=== PATIENT | female | born 1940 | race Caucasian/White ===

== ENCOUNTER → 2023-11-29 15:09 | Outpatient (REF) | payer OTHER, SELFPAY | LOC: WDC 15:09 | PROVIDERS: ATTENDING PHYSICIAN Surgery; FAMILY PHYSICIAN Physician Assistant Medical | DX: Z12.31 Encounter for screening mammogram for malignant neoplasm of breast (principal) | CPT/HCPCS: 77063; 77067 ==

== ENCOUNTER → 2024-06-06 11:31 | Outpatient (REF) | payer OTHER, SELFPAY | LOC: RAD 11:31 | PROVIDERS: ATTENDING PHYSICIAN Physician Assistant Medical | DX: M41.9 Scoliosis, unspecified (principal); M25.551 Pain in right hip; M25.552 Pain in left hip; G89.29 Other chronic pain; M54.42 Lumbago with sciatica, left side | CPT/HCPCS: 72110; 73523 ==

== ENCOUNTER 2024-06-30 12:53 | Outpatient (RCR) | payer OTHER, SELFPAY | END 2024-06-30 23:59 | disposition home or self-care (01) | LOC: RPT 12:53 | PROVIDERS: ATTENDING PHYSICIAN Physician Assistant Medical | DX: M41.9 Scoliosis, unspecified (principal); M25.551 Pain in right hip; M25.552 Pain in left hip; R26.89 Other abnormalities of gait and mobility; Z73.6 Limitation of activities due to disability | CPT/HCPCS: 97010; 97110; 97162 ==

== ENCOUNTER 2024-07-25 13:53 | Outpatient (RCR) | payer OTHER, SELFPAY | END 2024-07-28 07:40 | disposition home or self-care (01) | LOC: RPT 13:53 | PROVIDERS: ATTENDING PHYSICIAN Physician Assistant Medical | DX: M41.9 Scoliosis, unspecified (principal); M25.551 Pain in right hip; M25.552 Pain in left hip; R26.89 Other abnormalities of gait and mobility; Z73.6 Limitation of activities due to disability | CPT/HCPCS: 97010; 97110 ==

== ENCOUNTER → 2024-09-15 10:46 | Outpatient (REF) | payer OTHER, SELFPAY | LOC: RAD 10:46 | PROVIDERS: ATTENDING PHYSICIAN Internal Medicine; FAMILY PHYSICIAN Physician Assistant Medical | DX: M81.0 Age-related osteoporosis without current pathological fracture (principal) | CPT/HCPCS: 77080; 77081 ==

== ENCOUNTER 2024-09-25 11:40 | Emergency (ER) | payer OTHER, SELFPAY ==
[2024-09-25 11:41] VITALS: BP 161/100
--- NOTE | 2024-09-25 13:39 | ED.GENMED ---
History of Present Illness
General
Chief Complaint: Fall
Source: patient
Exam Limitations: none
Time Seen by Provider: 09/25/24 13:27
History of Present Illness
History of Present Illness:
84yoF with a history of hypothyroidism, hyperlipidemia, and restrictive airway disease presenting after a fall around 10:30am this morning. Patient was walking in the garage when she hit the front of her head on the garage door. The impact caused
her to fall backwards striking her head on the ground. She states her head bounced on the ground. She denies any LOC. Patient states her head felt weird after the incident. She has a mild headache and some neck discomfort. She denies any dizziness
or vomiting. She is not on any blood thinners.
Phy Exam
General Physical Exam
General Presentation: well appearing and no apparent distress
General age: appears stated age
General Skin: warm and dry
General Habitus: normal
General Mental: alert
ENT Exam
ENT Exam: normocephalic and other (No external signs of head trauma. No cervical spine tenderness with full ROM.)
Eye Exam
Eye Exam: PERRL
Pulmonary Exam
Pulmonary Exam: lungs clear, no respiratory distress, no rales and no rhonchi
Neurological Exam
Neurological Exam: alert
Justin Coma Scale
Eye Opening: Spontaneous
Verbal Response: Oriented
Motor Response: Obeys Commands
GCS Total Score: 15
Musculoskeletal Exam
Musculoskeletal Exam: other (No C/T/L spine tenderness)
Skin Exam
Skin Exam: normal color and warm/dry
Psychiatric Exam
Psychiatric Exam: normal mood/affect
Course
Orders/Labs/Results
Orders:
Orders
09/25/24 11:49
CT Head W/o Iv Contrast Urgent
Comment:
Reason For Exam: head injury, headache
Vital Signs
Initial and Last Documented VS:
Initial Vital Signs
Temp Pulse Resp BP Pulse Ox
98.5 F 114 18 161/100 98
09/25/24 11:41 09/25/24 11:41 09/25/24 11:41 09/25/24 11:41 09/25/24 11:41
Last Documented Vital Signs
Temp Pulse Resp BP Pulse Ox
98.5 F 114 18 161/100 98
09/25/24 11:41 09/25/24 11:41 09/25/24 11:41 09/25/24 11:41 09/25/24 11:41
MDM/Problems Addressed
Differential Diagnosis Includes:
84yoF here after a head injury. Fell in the garage striking the back of her head. No LOC. C/o mild headache and head feeling weird. Also c/o neck pain. She is not on any blood thinners. She is awake, alert, with a GCS of 15. No external signs of
head trauma on exam. No cervical spine tenderness with full range of motion. Differential diagnosis includes but is not limited to: Closed head injury, concussion, intracranial hemorrhage, fracture
CT head obtained in triage which is negative for intracranial hemorrhage and skull fracture. I recommended CT cervical spine to exclude cervical fracture. Patient is refusing cervical spine imaging at this time stating she does not feel it is
necessary as her neck pain is only a soreness. Discussed that we cannot exclude a cervical spine injury/fracture without imaging which she understands. Patient is requesting discharge at this time without further imaging. Supportive care
discussed. Advised close PCP follow-up and ED return precautions discussed. She was discharged in stable condition.
*Critical Care Note
Total Time (30-74mins, 75-104mins- exclusive of procedures): Not Applicable
ED Attending Note
-
Portions of this chart may have been created with voice recognition software.� Occasional wrong word or��sound alike� substitutions may have occurred due to the inherent limitations of voice recognition software.
Discharge Plan
Departure
Patient Disposition: Home (Routine Discharge)
Date of Disposition: 09/25/24
Time of Disposition: 13:42
Patient with high blood pressure during this ER visit?: Yes
Discharge Problem:
Closed head injury
Instructions: Head Injury in Adults (DC)
Prescriptions:
No Action
calcium 500 MG tablet
3 PO DAILY
levothyroxine 75 MCG tablet
1 PO DAILY
magnesium 250 MG tablet
1 PO DAILY
[place] 3 [employer]
4 PO DAILY
Activity Restrictions/Additional Instructions:
Please follow-up with your family doctor. Return to the ER with any worsening symptoms or new weakness/numbness of your extremities.
Interventions
Interventions:
*Risk Screen - Suicide Last Done: 09/25/24 11:41
*General Assessment Last Done: 09/25/24 11:41
*Neglect/Abuse Screening Last Done: 09/25/24 11:41
*ED COVID-19 Vaccine History Last Done: 09/25/24 11:41
Discharge Date and Time
Print Language: MOZAMBICAN
== END 2024-09-25 14:33 | disposition home or self-care (01) ==
LOC: EMR 11:40
PROVIDERS: EMERGENCY PHYSICIAN Emergency Medicine; FAMILY PHYSICIAN Physician Assistant Medical
DX: S09.90XA Unspecified injury of head, initial encounter (principal); W22.09XA Striking against other stationary object, initial encounter; Y93.01 Activity, walking, marching and hiking; E03.9 Hypothyroidism, unspecified; E78.00 Pure hypercholesterolemia, unspecified
CPT/HCPCS: 99284; 70450

== ENCOUNTER → 2024-10-08 12:42 | Outpatient (REF) | payer OTHER, SELFPAY | LOC: RAD 12:42 | PROVIDERS: ATTENDING PHYSICIAN Internal Medicine; FAMILY PHYSICIAN Physician Assistant Medical | DX: M25.50 Pain in unspecified joint (principal); M25.60 Stiffness of unspecified joint, not elsewhere classified | CPT/HCPCS: 73130 ==

== ENCOUNTER → 2024-10-14 11:24 | Outpatient (REF) | payer OTHER, SELFPAY | LOC: RAD 11:24 | PROVIDERS: ATTENDING PHYSICIAN Physician Assistant Medical | DX: M54.2 Cervicalgia (principal); M54.6 Pain in thoracic spine | CPT/HCPCS: 72052; 72072 ==

== ENCOUNTER → 2024-12-02 13:08 | Outpatient (REF) | payer OTHER, SELFPAY | LOC: WDC 13:08 | PROVIDERS: ATTENDING PHYSICIAN Surgery; FAMILY PHYSICIAN Physician Assistant Medical | DX: Z12.31 Encounter for screening mammogram for malignant neoplasm of breast (principal) | CPT/HCPCS: 77063; 77067 ==

== ENCOUNTER → 2025-02-05 13:48 | Outpatient (REF) | payer OTHER, SELFPAY | LOC: WDC 13:48 | PROVIDERS: ATTENDING PHYSICIAN Surgery; FAMILY PHYSICIAN Physician Assistant Medical | DX: Z91.89 Other specified personal risk factors, not elsewhere classified (principal); R92.2 Inconclusive mammogram | CPT/HCPCS: 76641 ==

== ENCOUNTER → 2025-02-06 06:50 | Outpatient (REF) | payer OTHER, SELFPAY | LOC: RCS 06:50 | PROVIDERS: ATTENDING PHYSICIAN Internal Medicine Cardiovascular Disease; FAMILY PHYSICIAN Physician Assistant Medical | DX: I10 Essential (primary) hypertension (principal); R06.02 Shortness of breath; E78.00 Pure hypercholesterolemia, unspecified | CPT/HCPCS: 78452; 93017; A9500 ==

== ENCOUNTER → 2025-02-11 12:41 | Outpatient (REF) | payer OTHER, SELFPAY | LOC: RCS 12:41 | PROVIDERS: ATTENDING PHYSICIAN Internal Medicine Cardiovascular Disease; FAMILY PHYSICIAN Physician Assistant Medical; REFERRING PHYSICIAN Nurse Practitioner Adult Health | DX: Z01.810 Encounter for preprocedural cardiovascular examination (principal); I10 Essential (primary) hypertension; R06.02 Shortness of breath; E78.00 Pure hypercholesterolemia, unspecified | CPT/HCPCS: 71046; 93306 ==

== ENCOUNTER 2025-03-02 06:42 | Inpatient (IN) | payer OTHER, SELFPAY ==
[2025-02-17 10:13] VITALS: BMI 20.5
[2025-02-17 11:26] LABS: Hematocrit 41.2 % (37.0-47.0); Hemoglobin 13.4 g/dL (12.0-16.0); Mean Corp Hgb Conc. 32.5 g/dL (33.0-37.0); Mean Corpuscular Volume 82.6 fL (81.0-99.0); Platelet Count 373 10^3/uL (130-400); Red Cell Dist. Width 13.2 % (11.5-14.5)
[2025-02-17 11:49] LABS: ALT (SGPT) 16 U/L (0-35); AST (SGOT) 21 U/L (14-36); Albumin 4.7 g/dl (3.5-5.0); Alkaline Phosphatase 61 U/L (38-126); Blood Urea Nitrogen 17 mg/dl (7-17); Calcium 9.4 mg/dl (8.4-10.2); Carbon Dioxide 28 mmol/L (22-30); Chloride 100 mmol/L (98-107); Estimated Creatinine Clearance 52 ml/min; Glucose 86 mg/dl (70-99); Potassium 4.6 mmol/L (3.5-5.1); Sodium 137 mmol/L (135-145); Total Protein 7.1 g/dl (6.3-8.2); eGFR > 60.00
[2025-02-17 12:12] LABS: Glycohemoglobin (HgbA1c) 5.7 % (4.0-5.6)
[2025-02-26 08:09] VITALS: BMI 20.5
[2025-03-02] VITALS (12 sets, daily range): BP systolic 91–135; BP diastolic 53–76; PULSE 96–110; O2SAT 97–98; BMI 20.5
[2025-03-02] MEDS: CELEBREX 200 MG PO (07:12)
[2025-03-02] MEDS: TYLENOL 650 MG PO ×4 (07:13→23:12)
[2025-03-02] MEDS: NORMOSOL-R/PLASMALYTE-A 1000 IV ×2 (07:19→13:50)
[2025-03-02] MEDS: DILAUDID 0.25 MG IV ×2 (10:59→11:11)
[2025-03-02] MEDS: ROXICODONE 5 MG PO ×2 (11:26→20:24)
[2025-03-02] MEDS: PROTONIX IV 40 MG IV (12:30)
[2025-03-02] MEDS: NSS (PRESERVATIVE FREE) 10 ML IV (12:32)
[2025-03-02] MEDS: MAALOX 30 ML PO (12:32)
--- NOTE | 2025-03-02 12:34 | W.PN.ORTHO ---
Today's Communication / Plan
-
Monitor troponin trends.
Monitor L hip pain.
D/c when clinically stable.
Assessment
.
Distal Motor Intact: Yes
Dressing:
Scant areas of incisional bleeding.
Assessment:
L hip OA s/p Angela MARIE w/ Dr Patel 03/02/25
DVT prophylaxis - ASA, b/l venous foot pumps
L hip pain - will order additional 2.5 mg Oxycodone dose, Gabapentin, and Lidocaine patches
- Monitor and adjust meds as indicated
Reported chest discomfort post-op - likely indigestion related w/ underlying GERD - will order IV Protonix, Maalox
- Rule out cardiac cause: EKG NSR, minimal voltage criteria for LVH (may be normal variant) - no change since prior EKG 2017. Serial troponin ordered
- Monitor
HTN - + parameters - monitor BP
COPD with asthmatic component
Restrictive lung disease
Chronic dyspnea on exertion
- Monitor O2
- IS
- Resume home inhalers
- IV Decadron w/ transition to oral upon d/c
GERD and Hiatal hernia - continue PPI therapy
Remote rectal bleed secondary to colon polyps - minimize NSAIDs
Irritable bowel syndrome with constipation - start w/ Colace and Senna initially per pt preference
- Add MOM HS should no BM occur within 48-72 hours post-op
- Adequate hydration, early mobility as tolerated, and the minimization of opioids discussed fidelina-op
Concussion, 10/2024, secondary to mechanical fall, improved - on fall precautions
Hypercholesterolemia
Diverticulosis
Essential tremor
Multilevel degenerative disc disease
Scoliosis, status post remote thoracic fusion
Multinodular goiter, status post right partial thyroidectomy
Post-surgical hypothyroidism
Depression
Anxiety
Insomnia
Osteoporosis
Childhood polio
Remote history of tobacco abuse
Plan
.
Surgery / Date: Angela MARIE w/ Dr Patel 03/02/25
DVT Prophylaxis: Aspirin
Activity:
Out of bed.
PT/OT
Discharge Plan: Home w/ Outpatient PT
Subjective
.
.:
Patient examined resting in bed.
Reports chest discomfort, likely indigestion related.
L hip pain reportedly 03/12.
Vital Signs and Labs
.
Vital Signs and Labs:
Lab Results
02/17/25 10:23
02/17/25 10:23
Temp Pulse Resp BP Pulse Ox
97.5 F 84 14 115/64 98
03/02/25 12:20 03/02/25 12:20 03/02/25 12:20 03/02/25 12:20 03/02/25 12:20
Physical Exam
-
HEENT: No pallor, cyanosis, or jaundice. Throat clear.
NECK: Supple. No JVD.
RESPIRATORY: Lungs clear to auscultation.
CVS: S1, S2 normal. RRR.�
ABDOMEN: Soft, non-tender. No distension.
EXTREMITIES: Strength equal, no calf pain with palpation/dorsiflexion. Calves soft.
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 No focal deficits. steel layer grossly intact
[2025-03-02] MEDS: ROXICODONE 2.5 MG PO (13:10)
[2025-03-02] MEDS: NEURONTIN 300 MG PO (13:10)
[2025-03-02 13:27] LABS: Troponin I < 0.012 ng/ml
--- NOTE | 2025-03-02 13:46 | PTCARENOTE ---
Pt arrived to [facility] from PACU in a bed. Pt c/o chest pain/indigestion and EKG obtained. VSS. Ortho PANeli, notified and came to bedside. Serial troponins and IV protonix ordered. Maalox given. Pt on 2L of o2 at 98%. Left hip dressing with scant
sanguineous drainage. Pt oriented to room and call cunningham. Bed locked and in lowest position. Care ongoing.
[2025-03-02] MEDS: EFFEXOR XR 112.5 MG PO (13:50)
[2025-03-02] MEDS: ZYRTEC 10 MG PO (13:50)
[2025-03-02] MEDS: VITAMIN D3 (cholecalciferol) 50 MCG PO (13:50)
[2025-03-02] MEDS: TYLENOL PO (13:56)
[2025-03-02] MEDS: LIDOCAINE 4% PATCH 2 PATCH TOPICAL (13:56)
[2025-03-02] MEDS: ANCEF 5 IV ×2 (15:32→23:12)
--- NOTE | 2025-03-02 15:58 | PTCARENOTE ---
Pt orthostatic while working with PT. Ortho PANeli, notified and Midodrine ordered. Care ongoing.
--- NOTE | 2025-03-02 16:29 | CM ---
CM met with patient's daughter, cousin and . Patient's daughter feels that patient's is unable to care for patient. Patient's daughter stated that patient's cannot provide the physical support needed to care for patient.
Patient's is also hard of hearing and forgetful. Patient's does housekeeping and shopping. He is able to drive short distances in [place].
CM discussed private pay caregivers. Patient's daughter would be agreeable but has not made any arrangements. CM discussed SNF placement. Daughter and both feel that patient would not want to go to SNF. CM discussed the option of [facility] until
patient was able to be safely transported by to outpatient PT.
Daughter stated that works and is only able to assist a couple of hours a day. Patient's cousin is also unable to assist.
CM will remain available as needed.
[2025-03-02] MEDS: ASPIRIN 325 MG PO (17:52)
[2025-03-02 18:35] LABS: Troponin I < 0.012 ng/ml
[2025-03-02] MEDS: NON-FORMULARY ITEM 2 INH INH (19:18)
[2025-03-02] MEDS: SENOKOT PO (20:23)
[2025-03-02] MEDS: REMOVE LIDOCAINE PATCH 2 PATCH REMOVE (20:23)
[2025-03-02] MEDS: DECADRON 4 MG IV (20:24)
[2025-03-02] MEDS: COLACE PO (20:24)
[2025-03-02] MEDS: BENADRYL 25 MG PO (21:38)
[2025-03-02] MEDS: NEURONTIN 400 MG PO (21:38)
[2025-03-02] MEDS: LIPITOR 10 MG PO (21:38)
[2025-03-02] MEDS: BACTROBAN 2% OINTMENT 1 APPLIC NASAL (21:38)
[2025-03-02] MEDS: SINGULAIR 10 MG PO (21:39)
[2025-03-03] MEDS: TYLENOL PO (05:00)
[2025-03-03] MEDS: ROXICODONE 5 MG PO ×2 (05:05→11:17)
[2025-03-03] MEDS: SYNTHROID 75 MCG PO (05:05)
[2025-03-03] MEDS: XANAX 0.25 MG PO (05:55)
[2025-03-03] MEDS: ROXICODONE 2.5 MG PO (06:27)
[2025-03-03 07:30] VITALS: BP 128/60
[2025-03-03] MEDS: BACTROBAN 2% OINTMENT 1 APPLIC NASAL (07:47)
[2025-03-03] MEDS: ASPIRIN 325 MG PO (07:47)
[2025-03-03] MEDS: EFFEXOR XR 112.5 MG PO (07:47)
[2025-03-03] MEDS: TYLENOL 650 MG PO ×2 (07:47→12:33)
[2025-03-03] MEDS: PROTONIX 40 MG PO (07:48)
[2025-03-03] MEDS: SENOKOT 17.2 MG PO (07:48)
[2025-03-03] MEDS: VITAMIN D3 (cholecalciferol) 50 MCG PO (07:48)
[2025-03-03] MEDS: COLACE 100 MG PO (07:48)
[2025-03-03] MEDS: ZYRTEC 10 MG PO (07:48)
[2025-03-03] MEDS: DECADRON 4 MG IV (07:49)
[2025-03-03] MEDS: LIDOCAINE 4% PATCH 2 PATCH TOPICAL (07:49)
--- NOTE | 2025-03-03 08:44 | W.PN.ORTHO ---
Today's Communication / Plan
-
Monitor orthostatics.
Await PT and OT recs.
D/c later today if remaining clinically stable.
Assessment
.
Distal Motor Intact: Yes
Dressing:
Small areas of old bleeding along incision line.
Assessment:
L hip OA s/p L FRANK w/ Dr Patel 03/02/25
DVT prophylaxis - ASA, b/l venous foot pumps
L hip pain - did order additional 2.5 mg Oxycodone dose, Gabapentin, and Lidocaine patches
- Pain reportedly well controlled by POD 1
Reported chest discomfort post-op - likely indigestion related w/ underlying GERD - did order Protonix, Maalox
- Rule out cardiac cause: EKG NSR, minimal voltage criteria for LVH (may be normal variant) - no change since prior EKG 2017. Serial troponin negative.
- Resolved w/ measures above by POD 1
HTN - + parameters - monitor BP
- Symptomatic orthostasis POD 1 -> Awaiting orthostatic VS this AM. BPs stable overnight, however, w/ Midodrine x1, oral/IV hydration, and TEDs
- Continue oral hydration, TEDs, SBP parameters to Amlodipine, and minimization of opioids upon d/c for BP stability
COPD with asthmatic component
Restrictive lung disease
Chronic dyspnea on exertion
- O2 stable on RA w/ measures below
- IS
- Resume home inhalers
- IV Decadron w/ transition to oral upon d/c
GERD and Hiatal hernia - continue PPI therapy
Remote rectal bleed secondary to colon polyps - minimize NSAIDs
Irritable bowel syndrome with constipation - start w/ Colace and Senna initially per pt preference
- Add MOM HS should no BM occur within 48-72 hours post-op
- Adequate hydration, early mobility as tolerated, and the minimization of opioids discussed fidelina-op
Concussion, 10/2024, secondary to mechanical fall, improved - on fall precautions
Hypercholesterolemia
Diverticulosis
Essential tremor
Multilevel degenerative disc disease
Scoliosis, status post remote thoracic fusion
Multinodular goiter, status post right partial thyroidectomy
Post-surgical hypothyroidism
Depression
Anxiety
Insomnia
Osteoporosis
Childhood polio
Remote history of tobacco abuse
Plan
.
Surgery / Date: L FRANK w/ Dr Patel 03/02/25
DVT Prophylaxis: Aspirin
Activity:
Out of bed.
PT/OT
Discharge Plan: Home w/ VN
Subjective
.
.:
Patient resting comfortably in her chair this AM.
L hip pain relatively well controlled w/ current pain meds.
Denies any new significant complaints. Chest discomfort yesterday resolved.
Eager for potential d/c today.
Vital Signs and Labs
.
Vital Signs and Labs:
Lab Results
02/17/25 10:23
02/17/25 10:23
Temp Pulse Resp BP Pulse Ox
98.5 F 87 16 128/60 94
03/03/25 07:30 03/03/25 07:50 03/03/25 07:30 03/03/25 07:50 03/03/25 07:30
Non-invasive Hgb result: 11.4
Physical Exam
-
HEENT: No pallor, cyanosis, or jaundice. Throat clear.
NECK: Supple. No JVD.
RESPIRATORY: Lungs clear to auscultation.
CVS: S1, S2 normal. RRR.�
ABDOMEN: Soft, non-tender. No distension.
EXTREMITIES: Strength equal, no calf pain with palpation/dorsiflexion. Calves soft.
VEHICLE CHECK IN CLERK: AOx3. No focal deficits. ethics officer grossly intact
[2025-03-03 09:15] VITALS: BP 131/59; BP 135/62; BP 136/69; PULSE 93; PULSE 94; PULSE 95
--- NOTE | 2025-03-03 09:39 | CM ---
Cm reviewed medical records. CM updated [facility] health care liaison with referral.
--- NOTE | 2025-03-03 10:15 | CM ---
CM reviewed medical records. CM met with patient, daughter and . Patient is agreeable to [facility]. Referral updated.
PLAN: Home with [facility].
--- NOTE | 2025-03-03 10:48 | VNURNOTE ---
Home Health Liaison met with patient, spouse, daughter at bedside to discuss [facility] nurse/therapy, visits, schedule and homebound status. Patient is agreeable and understands that visits at home will be 2-3 x per week to assess and teach medical
management.
Patient is aware that [facility] will contact them for start of care in 1-2 days after discharge from .
[facility] referral completed in [facility].
--- NOTE | 2025-03-03 12:19 | W.DS.TRANS ---
DC Summary - Final Inspection Supervisor
-
Discharge Instructions:
Sleep Apnea Risk Low
Discharge Diagnosis/Procedures L hip OA s/p L FRANK w/ Dr Patel 03/02/25
Diet Regular
Additional Diets Adequate hydration, minimize opioids, and wear
TEDs stockings to prevent low blood pressure/
dizziness.
Activity As tolerated,With Walker
Additional Activity with supervision
Driving Restrictions Not until seen by your Dr
Bathing Restrictions OK to Shower
Other Services PT,VN
Wound Care Dressing to be removed 1 week post-surgery.
Orange to be removed at 2 week follow-up with
surgeon's office.
Instructions:
Stand-Alone Forms: Total Hip/Knee Replacement D/C
Changes to Home Medications: Yes
Discharge Medications:
DC Medications w/original date entered in [facility]
levothyroxine 75 mcg tablet 75 mcg PO DAILY Thyroid 06/16/09
calcium citrate 500 mg PO DAILY Supplement 02/16/25
cetirizine 10 mg tablet (Zyrtec) 10 mg PO DAILY Allergies 02/16/25
cholecalciferol (vitamin D3) 50 mcg (2,000 unit) capsule (Vitamin D3) 50 mcg PO DAILY Supplement 02/16/25
denosumab 60 mg/mL subcutaneous syringe (Prolia) 60 mg SC [id number] 02/16/25
fluticasone furoate 100 mcg-vilanterol 25 mcg/dose inhalation powder (Breo Ellipta) 1 inh inhalation DAILY Lung/Breathing Issues 02/16/25
fluticasone propionate 50 mcg/actuation nasal spray,suspension 1 spray intranasal DAILY Allergies 02/16/25
gabapentin 400 mg capsule 400 mg PO HS Neurological Condition 02/16/25
levalbuterol tartrate 45 mcg/actuation aerosol inhaler 2 inh inhalation Q6H PRN wheeze 02/16/25
levothyroxine 75 mcg tablet 112.5 mcg PO SA 02/16/25
montelukast 10 mg tablet (Singulair) 10 mg PO HS Allergies 02/16/25
multivitamin 1 tab PO DAILY Supplement 02/16/25
omeprazole 20 mg tablet,delayed release 20 mg PO DAILY Gastrointestinal Issue 02/16/25
peppermint oil 2 cap PO DAILY 02/16/25
simvastatin 10 mg tablet 10 mg PO HS High Cholesterol 02/16/25
venlafaxine 37.5 mg capsule,extended release 24 hr 112 mg PO DAILY Mental Health/Anxiety 02/16/25
vitamin K2 100 mcg capsule 100 mcg PO DAILY Supplement 02/16/25
Held on 03/03/25. Instructions: Resume on 03/09/25.
mupirocin 2 % topical ointment 1 applic intranasal BID #1 tube 02/17/25
acetaminophen 500 mg tablet 1,000 mg (2 x 500 mg) PO Q6H #30 tabs 03/03/25
alprazolam 1 mg tablet 0.25 mg (1/4 x 1 mg) PO DAILY PRN anxiety #1 tab 03/03/25
amlodipine 2.5 mg tablet 2.5 mg PO HS Blood Pressure #1 tab 03/03/25
aspirin 325 mg tablet 325 mg PO DAILY #30 tabs 03/03/25
dexamethasone 4 mg tablet 4 mg PO BID Anti-inflammatory #5 tabs 03/03/25
diphenhydramine HCl 25 mg capsule 25 mg PO HSPRN PRN insomnia #30 caps 03/03/25
docusate sodium 100 mg capsule 100 mg PO BID #30 caps 03/03/25
lidocaine 4 % topical patch 2 patch topical DAILY #30 ea 03/03/25
magnesium hydroxide 400 mg/5 mL oral suspension (Milk of Magnesia) 30 ml PO DAILYPRN PRN constipation #3,000 mL 03/03/25
ondansetron HCl 4 mg tablet 4 mg PO Q6H PRN nausea and vomiting #30 tabs 03/03/25
oxycodone 5 mg tablet 5 - 10 mg (1 - 2 x 5 mg) PO Q6H PRN moderate-severe pain #30 tabs 03/03/25
sennosides 8.6 mg tablet (Rosalva-dixon) 17.2 mg (2 x 8.6 mg) PO BID #30 tabs 03/03/25
Home Medication Changes
acetaminophen 500 mg tablet 1,000 mg (2 x 500 mg) PO Q6H #30 tabs 03/03/25
aspirin 325 mg tablet 325 mg PO DAILY #30 tabs 03/03/25
dexamethasone 4 mg tablet 4 mg PO BID Anti-inflammatory #5 tabs 03/03/25
docusate sodium 100 mg capsule 100 mg PO BID #30 caps 03/03/25
lidocaine 4 % topical patch 2 patch topical DAILY #30 ea 03/03/25
magnesium hydroxide 400 mg/5 mL oral suspension (Milk of Magnesia) 30 ml PO DAILYPRN PRN constipation #3,000 mL 03/03/25
ondansetron HCl 4 mg tablet 4 mg PO Q6H PRN nausea and vomiting #30 tabs 03/03/25
oxycodone 5 mg tablet 5 - 10 mg (1 - 2 x 5 mg) PO Q6H PRN moderate-severe pain #30 tabs 03/03/25
sennosides 8.6 mg tablet (Rosalva-dixon) 17.2 mg (2 x 8.6 mg) PO BID #30 tabs 03/03/25
Pending Results: No
[2025-03-03 12:23] VITALS: BP 140/58; BP 159/69; PULSE 91; O2SAT 96
[2025-03-03 12:33] VITALS: BP 139/64
== END 2025-03-03 14:20 | disposition home health service (06) | DRG 470 ==
LOC: 2 SOUTH 06:42
PROVIDERS: Physician Assistant; ADMITTING PHYSICIAN Specialist; FAMILY PHYSICIAN Physician Assistant Medical; REFERRING PHYSICIAN Internal Medicine Cardiovascular Disease
PROC: 0SRB03A Replacement of Left Hip Joint with Ceramic Synthetic Substitute, Uncemented, Open Approach (ICD-10-PCS; 2025-03-02)
DX: M16.12 Unilateral primary osteoarthritis, left hip (principal); E78.00 Pure hypercholesterolemia, unspecified; E89.0 Postprocedural hypothyroidism; I10 Essential (primary) hypertension; J44.89 Other specified chronic obstructive pulmonary disease; K21.9 Gastro-esophageal reflux disease without esophagitis; K44.9 Diaphragmatic hernia without obstruction or gangrene; K58.1 Irritable bowel syndrome with constipation; R73.03 Prediabetes; K57.30 Diverticulosis of large intestine without perforation or abscess without bleeding; J98.4 Other disorders of lung; G47.00 Insomnia, unspecified; G25.0 Essential tremor; F41.9 Anxiety disorder, unspecified; F32.A Depression, unspecified; Z79.899 Other long term (current) drug therapy; Z86.0100 Personal history of colon polyps, unspecified; Z87.891 Personal history of nicotine dependence
CPT/HCPCS: 36415; 73502; 80053; 83036; 84484; 85027; 87070; 93005; 94640; 97110; 97116; 97163; 97167; 97530; 97535; C1713; C1776

== ENCOUNTER 2025-03-09 12:31 | Inpatient (IN) | payer OTHER, SELFPAY ==
[2025-03-09 05:48] VITALS: BP 142/74; BMI 21.1
[2025-03-09 06:11] LABS: Hematocrit 32.4 % (37.0-47.0); Hemoglobin 10.6 g/dL (12.0-16.0); Mean Corp Hgb Conc. 32.7 g/dL (33.0-37.0); Mean Corpuscular Volume 81.6 fL (81.0-99.0); Nucleated Red Blood Cells % 0 %; Platelet Count 394 10^3/uL (130-400); Red Cell Dist. Width 13.6 % (11.5-14.5)
[2025-03-09] MEDS: ZOFRAN 4 MG IV (06:29)
[2025-03-09] MEDS: DILAUDID 0.5 MG IV (06:30)
[2025-03-09 06:37] LABS: ALT (SGPT) 23 U/L (0-35); AST (SGOT) 18 U/L (14-36); Albumin 3.5 g/dl (3.5-5.0); Alkaline Phosphatase 60 U/L (38-126); Blood Urea Nitrogen 14 mg/dl (7-17); Calcium 7.9 mg/dl (8.4-10.2); Carbon Dioxide 24 mmol/L (22-30); Chloride 101 mmol/L (98-107); Estimated Creatinine Clearance 59 ml/min; Glucose 89 mg/dl (70-99); Potassium 4.0 mmol/L (3.5-5.1); Sodium 131 mmol/L (135-145); Total Protein 5.7 g/dl (6.3-8.2); eGFR > 60.00
[2025-03-09 07:00] VITALS: BP 109/61
--- NOTE | 2025-03-09 08:05 | ED.GENMED ---
History of Present Illness
General
Chief Complaint: Fall
Source: patient
Exam Limitations: none
Time Seen by Provider: 03/09/25 06:13
Nursing documentation reviewed up to this point in time: agreed with
History of Present Illness
History of Present Illness:
Patient status post left hip repair with Dr. Patel last week, presents to ED secondary to sudden onset of left groin pain, when she got out of bed, lost balance, and fell forward. Patient states that she was able to brace the fall by reaching out
with her hand and holding onto the rail of the bed. Patient denies falling onto the floor. However, patient does report feeling sensation of severe pain in her left groin immediately. Since then, patient has not been able to ambulate secondary to
pain. Denies loss of sensation or weakness. Denies back pain. Denies nausea or vomiting.
Review of Systems
Review of Systems
Allergies reviewed?: Yes
All Other Systems: ROS reviewed and negative except as documented in HPI and ROS
Constitutional: Reports no symptoms; Denies fever
ABD/GI: Reports no symptoms; Denies nausea or vomiting
: Reports no symptoms
Musculoskeletal: Reports other (groin pain)
Skin: Reports no symptoms
Neurological: Reports no symptoms; Denies weakness or numbness
Phy Exam
Physical Exam
Physical Exam:
Physical Exam
General: moderate painful distress, not acutely ill. afebrile
Head: nc/at. eomi
Neck: supple. no meningeal signs.
Abdomen: normal bowel sounds. not tender.
Neuro: alert and oriented x 3. no focal neurological deficits
Skin: no rash
Psychiatric: well kept. interactive and cooperative
Extremities: left hip: lateral swelling/ecchymosis noted, ROM limited due to moderate pain. no obvious deformity
Course
Orders/Labs/Results
Orders:
Orders
03/09/25 05:47
Hip, Left 2-3 Views [CR Hip - LT w/wo Pel 2-3 Vw*] Urgent
Comment: previous replacement
Reason For Exam: fall/pain
Include a pelvis x-ray?: Yes
03/09/25 05:58
Type+Screen Urgent
Complete Blood Count/With Diff Urgent
Comprehensive Metabolic Panel Urgent
03/09/25 06:21
HYDROmorphone [Dilaudid] 0.5 mg IV NOW STA
Ondansetron Injectable [Zofran] 4 mg IV NOW STA
03/09/25 06:23
ABO2 Urgent
BBK Wristband Number:
Associate notified that ABO2 has been ordered: [id number]
Date: 03/09/25
Time: 06:21
Yarding Engineer ID: [id number]
03/09/25 07:47
CT Lower Ext W/o Iv Cont Lt Urgent
Comment:
Reason For Exam: Left hip/groin pain after fall
03/09/25 12:12
Admit/Transfer Patient As Directed
Co-Sign Provider:
Level of Care: Inpatient admission
Assign to:: Medical/Surgical
Physician / Group: warren/hospitalist
Diagnosis: left femur fracture
Reason for Hospitalization: left proxmial femur fracture
Expected length of stay greater than two midnights?: Yes
ELOS- Estimated Length of Stay in days: 4
I certify the patient meets the requirements for IP care: Yes
03/09/25 12:13
PRN Pain Medication Management As Directed
May give lesser potent ordered pain med per pt: Yes
preference::
Protocol:: Medication orders for pain may be administered in a
manner that supports deferring to patient preference
when the pt is:
- Requesting an ordered lesser potent pain medication.
Least to most potent pain medications are defined
as: acetaminophen < NSAID < tramadol < opioids
(morphine, oxycodone, hydromorphone).
- Requesting a lesser dose of the same medication IF
ORDERED.
- Requesting a less intrusive route of administration
if both routes are prescribed by the provider (PO <
IV).
03/09/25 12:15
Code Status As Directed
Resuscitation Status: Full Code
03/09/25 12:23
Morphine Sulfate 2 mg IV Q3HPRN PRN
Oxycodone [Roxicodone] 5 mg PO Q4HPRN PRN
Abnormal Lab Results
03/09/25
05:58
WBC 12.4 H 10^3/uL
(4.8-10.8)
RBC 3.97 L 10^6/uL
(4.20-5.40)
Hgb 10.6 L g/dL
(12.0-16.0)
Hct 32.4 L %
(37.0-47.0)
MCH 26.7 L pg
(27.0-31.0)
MCHC 32.7 L g/dL
(33.0-37.0)
Abs Immat Gran (auto) 0.3 H 10^3/uL
(0-0.05)
Absolute Neuts (auto) 9.2 H 10^3/uL
(1.4-6.5)
Absolute Monos (auto) 1.0 H 10^3/uL
(0.1-0.6)
Immature Gran % 2.2 H %
(0-0.5)
Lymphocytes % 13.3 L %
(20.5-51.1)
Sodium 131 L mmol/L
(135-145)
Creatinine 0.5 L mg/dL
(0.6-1.0)
Calcium 7.9 L mg/dl
(8.4-10.2)
Total Protein 5.7 L g/dl
(6.3-8.2)
03/09/25 05:58
03/09/25 05:58
Vital Signs
Initial and Last Documented VS:
Initial Vital Signs
Temp Pulse Resp BP Pulse Ox
98.5 F 98 17 142/74 99
03/09/25 05:48 03/09/25 05:48 03/09/25 05:48 03/09/25 05:48 03/09/25 05:48
Last Documented Vital Signs
Temp Pulse Resp BP Pulse Ox
98.5 F 92 22 109/61 95
03/09/25 05:48 03/09/25 10:45 03/09/25 10:45 03/09/25 07:00 03/09/25 10:30
MDM/Problems Addressed
MDM/Problems Addressed:
No obvious fracture noted on x-ray. However, patient experiencing significant, persistent pain. As such, will obtain CT lower extremity without contrast to evaluate for potential occult fracture.
CT report reviewed and discussed with patient.
manager call center orthopaedic surgeon () notified via [employer]
Patient will be admitted for further evaluation, due to continual pain. Patient will benefit from better pain control along with PT/OT evaluation.
*Pulse Oximetry
SaO2: 92
Oxygen Mode of Delivery: Room air
Patient hypoxic: no
*Critical Care Note
Total Time (30-74mins, 75-104mins- exclusive of procedures): Not Applicable
ED Attending Note
-
Portions of this chart may have been created with voice recognition software.� Occasional wrong word or��sound alike� substitutions may have occurred due to the inherent limitations of voice recognition software.
Discharge Plan
Departure
Patient Disposition: Admit
Date of Disposition: 03/09/25
Time of Disposition: 10:17
Admit to: Med/Surg
Presentation/result/management discussed w/ accepting MD/DO: Hospitalist
Discharge Problem:
Hip fracture, intractable pain
Interventions
Interventions:
*Risk Screen - Suicide Last Done: 03/09/25 05:48
*General Assessment Last Done: 03/09/25 05:48
*Neglect/Abuse Screening Last Done: 03/09/25 05:48
*ED- Fall Risk Assessment Last Done: 03/09/25 07:16
*ED COVID-19 Vaccine History Last Done: 03/09/25 05:48
ED-Musculoskeletal Assessment Last Done: 03/09/25 05:55
ED- Neurological Assessment Last Done: 03/09/25 05:55
ED-Skin Assessment Last Done: 03/09/25 05:55
--- NOTE | 2025-03-09 11:58 | HPS.HSE ---
Family Physician
-
Family Physician: DICK Mayen
Chief Complaint
-
left leg pain
History of Present Illness
85-year-old female with past medical history as below is presenting from home with severe left-sided leg pain. Of note patient underwent left total hip arthroplasty last week 03/02/2025 and postop patient was doing well. Patient was discharged
home. Patient states she was ambulating with a walker without any difficulty. Patient states she was going up and down the stairs without any difficulty. Remain in intermittent pain. Yesterday patient was using commode and and she felt extremely
weak and fell forward. Patient was able to get herself on the bed. Patient said she also had left-sided groin pop. States after hearing the pop she was unable to move her left lower extremity as she was in extreme amount of pain. Denies any
lightheadedness dizziness, chest pain shortness of breath. Denies any palpitations. Currently states of extreme left leg pain if with any movement.
Medical History
Past Medical History
Past Medical History: Reports Other
Additional Past Medical History:
Hypertension
Restrictive lung disease
Chronic obstructive pulmonary disease with asthmatic component
Chronic dyspnea on exertion
Irritable bowel syndrome with constipation
Severe osteoarthritis
Eve thyroiditis status post partial thyroidectomy now with hypothyroidism
Depression
Hyperlipidemia
Past Surgical History: Reports Other
Additional Past Surgical History:
Severe osteoarthritis with left hip total hip arthroplasty on 03/02/2025
Scoliosis w/spinal fusion
Right partial thyroidectomy
Cholecystectomy
Social History
Tobacco: Former Smoker
Personal:
Living: With Family
Family History
Family History: Not pertinent
Allergies / Home Medications
Allergies reflects when Allergies were last updated in [facility].
Home Medications with original date entered in [facility]
Allergy/Medication List:
Allergies
Allergy/AdvReac Type Severity Reaction Status Date / Time
albuterol Allergy Unknown Verified 03/02/25 06:54
ciprofloxacin Allergy swelling Verified 03/02/25 06:54
mouth
erythromycin base Allergy See Comment Verified 03/02/25 14:27
mepivacaine HCl (From Allergy See Comment Verified 03/02/25 14:27
Carbocaine)
nitrofurantoin (From Allergy numbing & Verified 03/02/25 06:54
Macrobid) tingling
in lips &
mouth
bactrim Allergy GI upset, Uncoded 03/02/25 06:54
nausea
Home Medications
levothyroxine 75 mcg tablet 75 mcg PO DAILY Thyroid 06/16/09
cetirizine 10 mg tablet (Zyrtec) 10 mg PO DAILY Allergies 02/16/25
cholecalciferol (vitamin D3) 50 mcg (2,000 unit) capsule (Vitamin D3) 50 mcg PO DAILY Supplement 02/16/25
denosumab 60 mg/mL subcutaneous syringe (Prolia) 60 mg SC [id number] 02/16/25
fluticasone furoate 100 mcg-vilanterol 25 mcg/dose inhalation powder (Breo Ellipta) 1 inh inhalation DAILY Lung/Breathing Issues 02/16/25
fluticasone propionate 50 mcg/actuation nasal spray,suspension 1 spray intranasal DAILY PRN Allergies 02/16/25
gabapentin 400 mg capsule 400 mg PO HS Neurological Condition 02/16/25
levalbuterol tartrate 45 mcg/actuation aerosol inhaler 2 inh inhalation Q6H PRN wheeze 02/16/25
levothyroxine 75 mcg tablet 150 mcg PO SA 02/16/25
montelukast 10 mg tablet (Singulair) 10 mg PO HS Allergies 02/16/25
omeprazole 20 mg tablet,delayed release 20 mg PO DAILY Gastrointestinal Issue 02/16/25
peppermint oil 2 cap PO DAILY 02/16/25
simvastatin 10 mg tablet 10 mg PO HS High Cholesterol 02/16/25
amlodipine 2.5 mg tablet 2.5 mg PO HS Blood Pressure #1 tab 03/03/25
aspirin 325 mg tablet 325 mg PO DAILY #30 tabs 03/03/25
docusate sodium 100 mg capsule 100 mg PO BID #30 caps 03/03/25
acetaminophen 500 mg tablet 500 mg PO Q6H 03/09/25
alprazolam 1 mg tablet 0.25 mg PO DAILYPRN PRN anxiety 03/09/25
diphenhydramine HCl 25 mg capsule 25 mg PO HSPRN PRN insomnia 03/09/25
lidocaine 4 % topical patch 1 patch topical DAILY left hip 03/09/25
oxycodone 5 mg tablet 5 mg PO Q6H PRN moderate-severe pain 03/09/25
sennosides 8.6 mg tablet (Rosalva-dixon) 17.2 mg PO BID PRN constipation 03/09/25
venlafaxine 37.5 mg capsule,extended release 24 hr 112 mg PO DAILY 03/09/25
Review of Systems
-
History Source: Patient
Constitutional: Reports No Symptoms
EENT: Reports No Symptoms
Respiratory: Reports No Symptoms
Cardiac: Denies Chest Pain, Palpitations or Syncope
Abdomen/GI: Reports No Symptoms
: Reports No Symptoms
Musculoskeletal: Reports See HPI
Skin: Reports No Symptoms
Neurological: Reports No Symptoms
Endocrine: Reports No Symptoms
Hematologic/Lymphatic: Reports No Symptoms
Psych: Reports No Symptoms
Physical Exam
Vital Signs
Vital Signs
Temp Pulse Resp BP Pulse Ox
98.5 F 92 22 109/61 95
03/09/25 05:48 03/09/25 10:45 03/09/25 10:45 03/09/25 07:00 03/09/25 10:30
Physical Exam
General: Well Developed, Well Nourished and No Apparent Distress
HEENT: NormoCephalic, Moist mucous membranes and Atraumatic
Respiratory: Clear
Cardiac: S1/S2 and Regular Rhythm; No Murmur or Rub
GI: Soft, Non Tender, Non Distended and Normal Bowel Sounds; No Organomegaly
Rectal: Deferred by Provider
Musculoskeletal: No Clubbing, No Cyanosis, No Edema and Other (Left hip bruising with dressing noted. )
Skin: No Rash
Neuro: Awake, Alert, Oriented, AO x 3, No Motor Deficits and Nonfocal/grossly intact
Psych: Calm
Laboratory Results
-
03/09/25 05:58
03/09/25 05:58
Laboratory Results
Total Bilirubin 0.7 mg/dl (0.2-1.3) 03/09/25 05:58
AST 18 U/L (14-36) 03/09/25 05:58
ALT 23 U/L (0-35) 03/09/25 05:58
Alkaline Phosphatase 60 U/L (38-126) 03/09/25 05:58
Data Reviewed
-
CT Scan: Report Reviewed by me, Discussed with Patient and Discussed with Family
Lab Data: Labs Reviewed by me
Old Records: Reviewed
Impression/Plan
-
#Nondisplaced proximal left femur fracture
#Recent left total hip arthroplasty on 03/02/[address] Patel
Bedrest for now
N.p.o. until orthopedic evaluation
Gentle IV fluids
Pain control. Bowel regimen.
Continue aspirin for DVT prophylaxis until orthopedic evaluation states otherwise
Orthopedic has been consulted
#Primary hypertension
Continue low-dose Norvasc with hold parameters
#Mood disorder/anxiety
Continue venlafaxine
Continue with Xanax as needed
#Asthma
Continue with Breo and Singulair
#Hypothyroidism
Continue with Synthroid
Hyperlipidemia
Continue with low-dose statin
DVT prophylaxis with aspirin/SCD prophylaxis
N.p.o. till orthopedic evaluation
Full code
Discussed with patient spouse at bedside in details
I spent a total of 80 minutes with the patient or on the floor. More than 50% of this time involved counseling and coordination of care.
--- NOTE | 2025-03-09 12:14 | CON.ORTHO ---
Consultation
-
Date/Time Consultation Requested: 03/09/25
Date/Time Consultation Performed: 03/09/25 @12pm
Requesting Provider: ER Provider
Performing Provider: Jessica Baeza PA-C for Ignacio Patel MD
Reason for Consultation: right femur fracture s/p right FRANK
Consultation - Orthopedics
History
HPI: 85yo female presents to [facility] for left groin pain. She underwent left FRANK on 03/02/[address] Patel. She reports that she was doing very well and was not requiring much in regards to pain medications. Last night, she was using the
bedside commode when she felt severe pain in her left groin. She states that she did not fall to the floor. She managed to get herself back in bed and then this morning she continued with pain and was unable to bear any weight. She does report a
popping feeling in her groin at the onset of her pain. She was brought to the ER via EMS for further evaluation.
PAST MEDICAL HISTORY: Osteoarthritis, Hypertension, Hypercholesterolemia, COPD with asthmatic component, Restrictive lung disease, Chronic dyspnea on exertion, GERD, Hiatal hernia, Remote rectal bleed secondary to colon polyps, Diverticulosis,
Irritable bowel syndrome with constipation, Essential tremor, Concussion, 10/2024, secondary to mechanical fall, improved, Multilevel degenerative disc disease, Scoliosis, status post remote thoracic fusion, Multinodular goiter, status post right
partial thyroidectomy, Post-surgical hypothyroidism, Depression, Anxiety, Insomnia, Osteoporosis, Childhood polio, Prediabetes, A1c 5.7, Remote history of tobacco abuse.
PAST SURGICAL HISTORY: left FRANK, cholecystectomy, ELI, Scoliosis w/spinal fusion, Right partial thyroidectomy
SOCIAL HISTORY: denies tobacco, alcohol
FAMILY HISTORY: Noncontributory
REVIEW OF SYSTEMS: 12 point review of systems obtained and negative except those mentioned in the HPI
Allergies / Home Medications
Allergy/AdvReac Type Severity Reaction Status Date / Time
albuterol Allergy Unknown Verified 03/02/25 06:54
ciprofloxacin Allergy swelling Verified 03/02/25 06:54
mouth
erythromycin base Allergy See Comment Verified 03/02/25 14:27
mepivacaine HCl (From Allergy See Comment Verified 03/02/25 14:27
Carbocaine)
nitrofurantoin (From Allergy numbing & Verified 03/02/25 06:54
Macrobid) tingling
in lips &
mouth
bactrim Allergy GI upset, Uncoded 03/02/25 06:54
nausea
�Medication �Instructions �Recorded
levothyroxine 75 mcg tablet 75 mcg PO DAILY Thyroid 06/16/09
cetirizine 10 mg tablet (Zyrtec) 10 mg PO DAILY Allergies 02/16/25
cholecalciferol (vitamin D3) 50 50 mcg PO DAILY Supplement 02/16/25
mcg (2,000 unit) capsule (Vitamin
D3)
denosumab 60 mg/mL subcutaneous 60 mg SC [id number] 02/16/25
syringe (Prolia)
fluticasone furoate 100 1 inh inhalation DAILY 02/16/25
mcg-vilanterol 25 mcg/dose Lung/Breathing Issues
inhalation powder (Breo Ellipta)
fluticasone propionate 50 1 spray intranasal DAILY PRN 02/16/25
mcg/actuation nasal Allergies
spray,suspension
gabapentin 400 mg capsule 400 mg PO HS Neurological Condition 02/16/25
levalbuterol tartrate 45 2 inh inhalation Q6H PRN wheeze 02/16/25
mcg/actuation aerosol inhaler
levothyroxine 75 mcg tablet 150 mcg PO SA 02/16/25
montelukast 10 mg tablet 10 mg PO HS Allergies 02/16/25
(Singulair)
omeprazole 20 mg tablet,delayed 20 mg PO DAILY Gastrointestinal 02/16/25
release Issue
peppermint oil 2 cap PO DAILY 02/16/25
simvastatin 10 mg tablet 10 mg PO HS High Cholesterol 02/16/25
amlodipine 2.5 mg tablet 2.5 mg PO HS Blood Pressure #1 tab 03/03/25
aspirin 325 mg tablet 325 mg PO DAILY #30 tabs 03/03/25
docusate sodium 100 mg capsule 100 mg PO BID #30 caps 03/03/25
acetaminophen 500 mg tablet 500 mg PO Q6H 03/09/25
alprazolam 1 mg tablet 0.25 mg PO DAILYPRN PRN anxiety 03/09/25
diphenhydramine HCl 25 mg capsule 25 mg PO HSPRN PRN insomnia 03/09/25
lidocaine 4 % topical patch 1 patch topical DAILY left hip 03/09/25
oxycodone 5 mg tablet 5 mg PO Q6H PRN moderate-severe 03/09/25
pain
sennosides 8.6 mg tablet (Rosalva-dixon) 17.2 mg PO BID PRN constipation 03/09/25
venlafaxine 37.5 mg 112 mg PO DAILY 03/09/25
capsule,extended release 24 hr
Vital Signs / Lab Results
Temp Pulse Resp BP Pulse Ox
98.5 F 92 22 109/61 95
03/09/25 05:48 03/09/25 10:45 03/09/25 10:45 03/09/25 07:00 03/09/25 10:30
03/09/25 05:58
03/09/25 05:58
RADIOGRAPHIC FINDINGS:
Xrays left hip show well positioned left FRANK, no obvious fracture
CT Left Lower Extremity shows nondisplaced cortical fracture involving the anterior and medial cortex of the proximal left femur, extending essentially the entire length of the femoral stem component. hardware remains stable
PHYSICAL EXAM:
General: no acute distress
HEENT: NCAT, sclera anicteric, normal hearing
Heart: No JVD
Lungs: normal work of breathing on room air
MSK: Focused exam of left hip reveals saleem in place. +TTP to groin, nontender over lateral hip. thigh is soft and compressible. pain with ROM of hip. calf soft and nontender. NVI distally
Assessment / Plan
ASSESSMENT: 85yo female with left periprosthetic femur fracture
PLAN: Unfortunately, Mrs. Lucia is one week postop from left FRANK with Dr. Patel and has sustained a nondisplaced femur fracture. Discussed with Dr. Patel. Given that this fracture is nondisplaced and the left total hip hardware remains stable, can
treat this conservatively. She is to be strict non weight bearing to the left leg. She is not to work with physical therapy at this time. Continue with pain management as needed. She will continue with aspirin 325mg daily for DVT prophylaxis until
one month postop. She will be followed closely as an outpatient. She is to follow up in one week for repeat xray (she does have an appointment scheduled in our office on 03/16/25). She may use a walker if she is able to maintain non weight bearing
status, otherwise recommend a wheelchair. She may have a diet today as she will not be undergoing surgery. Recommend case management consult for discharge planning. All of her questions were answered.
[2025-03-09] MEDS: ROXICODONE 5 MG PO ×2 (12:32→20:33)
--- NOTE | 2025-03-09 12:38 | CM ---
CM reviewed chart and met with pt bedside in ED. Livers with her in 2 story home, first floor half BA, second floor BR/full BA. Pt recently had L TH Arthroplasty, discharged home on 03/03.
Pt independent in ADLs, personal care and ambulation at baseline, using walker since surgery.
Per pt, she was told her fracture needs to heal on its own, no surgical intervention, she cannot do PT.
Is current with [facility] for SN, PT,OT.
Pt states she cannot go home without support, has dementia and cannot care for her. Her daughter and cousin live nearby and do provide support.
Discussed hiring caregivers, pt is aware this is private pay.
PCP: Rosa Mendez
[facility]
Discharge plan: Pending ongoing medical evaluation, watch for needs
--- NOTE | 2025-03-09 17:10 | PTCARENOTE ---
03/09- Patient transferred and oriented to unit without issue. AAOX3; bedrest; non-weightbearing on LLE; MedSurg. Patient states pain is currently 6/10 at rest.
[2025-03-09 17:25] VITALS: BP 132/65
[2025-03-09 17:53] VITALS: BMI 20.5
[2025-03-09] MEDS: MORPHINE SULFATE 2 MG IV (18:07)
[2025-03-09] MEDS: XANAX 0.25 MG PO (18:10)
[2025-03-09] MEDS: TYLENOL PO (20:30)
[2025-03-09] MEDS: COLACE 100 MG PO (20:33)
[2025-03-09] MEDS: NEURONTIN 400 MG PO (22:15)
[2025-03-09] MEDS: LIPITOR 10 MG PO (22:15)
[2025-03-09] MEDS: SINGULAIR 10 MG PO (22:15)
[2025-03-09] MEDS: TYLENOL 650 MG PO (22:20)
[2025-03-09 23:07] VITALS: BP 123/65
--- NOTE | 2025-03-10 03:46 | PTCARENOTE ---
Pt has SCDs ordered, refusing to wear them d/t pain in her left hip. ADJUN[employer] PROFESSOR [employer] VOICE Nel notified, no further orders.
[2025-03-10] MEDS: ROXICODONE 5 MG PO ×3 (04:43→18:05)
[2025-03-10] MEDS: TYLENOL PO ×4 (04:43→20:17)
[2025-03-10] MEDS: SYNTHROID 75 MCG PO (05:31)
[2025-03-10 07:22] VITALS: BP 117/53
[2025-03-10] MEDS: TYLENOL 650 MG PO (07:42)
[2025-03-10] MEDS: EFFEXOR XR 112.5 MG PO (07:42)
[2025-03-10] MEDS: VITAMIN D3 (cholecalciferol) 50 MCG PO (07:42)
[2025-03-10] MEDS: COLACE 100 MG PO ×2 (07:43→20:17)
[2025-03-10] MEDS: ZYRTEC 5 MG PO (07:43)
[2025-03-10] MEDS: ASPIRIN 325 MG PO (07:43)
[2025-03-10] MEDS: PROTONIX 40 MG PO (07:43)
[2025-03-10] MEDS: NON-FORMULARY ITEM 1 UNIT INH (08:09)
--- NOTE | 2025-03-10 09:54 | VNURNOTE ---
Chart reviewed. Patient is current with VN. Will continue to follow hospital course and DC plans.
--- NOTE | 2025-03-10 13:13 | W.PN.HOSP.TC ---
Today's Communication/Plan
-
Continue with the pain control regimen
Increase Xanax dose
PT assessment for transfers
Assessment / Plan
Assessment / Plan
#Nondisplaced proximal left femur fracture
#Recent left total hip arthroplasty on 03/02/[address] Patel
Reviewed by orthopedics this morning who recommends conservative management. No OR planned. Advises strict nonweightbearing on the left leg.
Pain control. Bowel regimen.
Continue aspirin for DVT prophylaxis until orthopedic evaluation states otherwise
PT OT eval for transfers assessment. Nonweightbearing on the left leg.
#Primary hypertension
Continue low-dose Norvasc with hold parameters
#Mood disorder/anxiety
Continue venlafaxine
Continue with Xanax as needed. Patient apparently was prescribed 1 mg to be taken as needed and she was cutting them into quarters and taking them. Patient feeling anxious with the situation around. Will increase the dose to Xanax 0.5 mg as needed
#Asthma
Continue with Breo and Singulair
#Hypothyroidism
Continue with Synthroid
Hyperlipidemia
Continue with low-dose statin
DVT prophylaxis with aspirin/SCD prophylaxis
Full code
Anticipated Discharge: 24 - 48 hours
Subjective/Interval History
-
Date of Service: March 10, 2025
Patient with intermittent spasm worse in the left hip. She says she has a history of restless legs in the past and does not take any medication. Today with minimal movement she is experiencing spasms in the legs especially in the left hip area.
Also feeling anxious about the whole situation.
No fever chills.
No shortness of breath or chest pain.
No nausea or vomiting.
Objective Data
-
Vital Signs:
Vital Signs
Temp Pulse Resp BP Pulse Ox
98.5 F 88 18 117/53 96
03/10/25 07:22 03/10/25 07:22 03/10/25 07:49 03/10/25 07:22 03/10/25 08:00
I&O
03/09/25 03/10/25 03/11/25
06:59 06:59 06:59
Intake Total 240 / 240
Balance 240 / 240
Physical Exam
-
General: Respiratory Distress
Respiratory: Non Labored Respirations; Negative Accessory Resp Muscle Use
Cardiac: Regular Rhythm and S1/S2
GI: Soft
Musculoskeletal: No Edema
Neuro: AO x 3; Negative No Motor Deficits (Left ankle 5/5, didnt check proximal strength)
Psych: Anxious; Negative Confused
Data Reviewed
-
Labs: Labs Reviewed by me
[2025-03-10] MEDS: XANAX 0.5 MG PO (13:17)
--- NOTE | 2025-03-10 13:57 | PTCARENOTE ---
Patient with an episode of high anxiety and restless leg syndrome to the LLE. Patient states that her leg is continuously cramping and she cannot get comfortable. Dr Cuellar in to see patient, advised this RN to administer 0.5mg xanax and 5mg
roxicodone. See MAR. Medications given with good effect.
[2025-03-10 15:16] VITALS: BP 116/57; BP 131/61; PULSE 101
[2025-03-10 16:14] VITALS: BP 131/61
[2025-03-10 21:26] VITALS: BP 112/55
[2025-03-10] MEDS: LIPITOR 10 MG PO (21:27)
[2025-03-10] MEDS: SINGULAIR 10 MG PO (21:27)
[2025-03-10] MEDS: NEURONTIN 400 MG PO (21:27)
[2025-03-10 23:06] VITALS: BP 118/62
[2025-03-11] MEDS: TYLENOL PO ×5 (00:32→23:45)
[2025-03-11] MEDS: SYNTHROID 75 MCG PO (06:07)
[2025-03-11 07:00] VITALS: BP 131/72
[2025-03-11] MEDS: ZYRTEC 5 MG PO (07:48)
[2025-03-11] MEDS: EFFEXOR XR 112.5 MG PO (07:48)
[2025-03-11] MEDS: ASPIRIN 325 MG PO (07:49)
[2025-03-11] MEDS: PROTONIX 40 MG PO (07:49)
[2025-03-11] MEDS: COLACE 100 MG PO ×2 (07:49→20:12)
[2025-03-11] MEDS: VITAMIN D3 (cholecalciferol) 50 MCG PO (07:49)
[2025-03-11] MEDS: ROXICODONE 5 MG PO ×3 (07:51→20:19)
[2025-03-11 08:03] LABS: Hematocrit 31.3 % (37.0-47.0); Hemoglobin 10.2 g/dL (12.0-16.0); Mean Corp Hgb Conc. 32.6 g/dL (33.0-37.0); Mean Corpuscular Volume 83.2 fL (81.0-99.0); Platelet Count 408 10^3/uL (130-400); Red Cell Dist. Width 14.0 % (11.5-14.5)
[2025-03-11] MEDS: NON-FORMULARY ITEM 1 UNIT INH (08:21)
[2025-03-11 08:38] LABS: Blood Urea Nitrogen 15 mg/dl (7-17); Calcium 7.5 mg/dl (8.4-10.2); Carbon Dioxide 26 mmol/L (22-30); Chloride 97 mmol/L (98-107); Estimated Creatinine Clearance 59 ml/min; Glucose 83 mg/dl (70-99); Potassium 4.2 mmol/L (3.5-5.1); Sodium 127 mmol/L (135-145); eGFR > 60.00
[2025-03-11 09:43] VITALS: BP 124/72; PULSE 122
[2025-03-11 09:46] VITALS: BP 116/64; BP 120/72; PULSE 121; O2SAT 94
--- NOTE | 2025-03-11 11:24 | CM ---
Addendum entered by Marcela Márquez 03/12/25 12:57:
[facility], will have a bed tomorrow
Spoke w/ patient, spouse and daughter bedside to update. Daughter w/ concerns that patient will need in home support following rehab. CM discussed options for private pay aides/caregivers.
Daughter stated she will be able to support her father, who is w/ dementia, while patient is at rehab as she mentioned patient will be worrying about him.
Updated hospitalist
Will need insurance auth
Plan: [facility]
Original Note:
Chart reviewed. Therapy rec SNF at d/c
Discussed w/ patient bedside, agreeable to SNF. SNF list provided, patient prefers [facility] then [facility]. Patient will further discuss w/ spouse. Patient aware that she may have to expand radius for additional facilities.
Referrals sent to [facility] and [facility] in [facility] for review
Will need insurance auth prior to d/c
Plan: SNF
--- NOTE | 2025-03-11 12:51 | PN.CDI ---
CDI
- -
CDI:
Physician Documentation Request
Admit Date: 03/09/25 12:31
Dear Doctor,
Please review the following and provide your response in the progress notes.
Clinical Indicators:
Pt admitted for Nondisplaced proximal left femur fracture.
Laboratory Tests
03/09/25 03/11/25
05:58 06:24
Sodium 131 L 127 L
Based on the above, could you clarify in the progress notes, the appropriate diagnosis, if significant, that supports the above Lab abnormalities and additional evaluation, monitoring and/or treatment rendered:
Hyponatremia
Insignificant abnormal lab values
Other
Use of terms such as suspected, likely, concern for, or probable (associated with a specific diagnosis that is being evaluated, monitored, or treated as if it exists) are acceptable and can be coded in the inpatient setting, when documented at the
time of discharge.
Thank you,
Katelyn Patterson RN, BSN
CDI Specialist
[facility]
Please use your independent medical judgment in providing your response.
--- NOTE | 2025-03-11 13:38 | W.PN.HOSP.TC ---
Today's Communication/Plan
-
Continue current pain control regimen and bowel regimen
Follow leukocytosis
Assessment / Plan
Assessment / Plan
#Nondisplaced proximal left femur fracture
#Recent left total hip arthroplasty on 03/02/[address] Patel
Reviewed by orthopedics who recommends conservative management. No OR planned. Advises strict nonweightbearing on the left leg.
Pain control. Bowel regimen.
Continue aspirin for DVT prophylaxis
CW PT OT RX.. Nonweightbearing on the left leg.
Leukocytosis
Patient afebrile
Denies any shortness of breath or urinary symptoms of dysuria frequency
Unclear if reactive to fracture.
Continue to follow for any development of focal symptoms
#Primary hypertension
Continue low-dose Norvasc with hold parameters
#Mood disorder/anxiety
Continue venlafaxine
Continue with Xanax as needed. Patient apparently was prescribed 1 mg to be taken as needed and she was cutting them into quarters and taking them. Patient feeling anxious with the situation around. Will increase the dose to Xanax 0.5 mg as needed
#Asthma
Continue with Breo and Singulair
#Hypothyroidism
Continue with Synthroid
Hyperlipidemia
Continue with low-dose statin
DVT prophylaxis with aspirin/SCD prophylaxis
Full code
Needs rehab on discharge
Case management working on placement
Anticipated Discharge: Within 24 hours
Subjective/Interval History
-
Date of Service: March 11, 2025
Today patient sitting in the chair. Less painful and spasms in the left leg. Not feeling anxious.
Denies any shortness of breath or chest pain.
No nausea vomiting. No lightheadedness.
Objective Data
-
Labs:
Laboratory Results
03/11/25
06:24
WBC 15.6 H
Hgb 10.2 L
Hct 31.3 L
Plt Count 408 H
Sodium 127 L
Potassium 4.2
Chloride 97 L
Carbon Dioxide 26
BUN 15
Creatinine 0.5 L
Glucose 83
Calcium 7.5 L
Vital Signs:
Vital Signs
Temp Pulse Resp BP Pulse Ox
98.7 F 118 18 131/72 96
03/11/25 07:00 03/11/25 08:24 03/11/25 08:24 03/11/25 07:00 03/11/25 08:24
I&O
03/10/25 03/11/25 03/12/25
06:59 06:59 06:59
Intake Total 240 / 240 920 / 920
Output Total 1200 / 1200
Balance 240 / 240 -280 / -280
Physical Exam
-
General: Comfortable
Respiratory: Non Labored Respirations; Negative Accessory Resp Muscle Use
Cardiac: Regular Rhythm and S1/S2
GI: Soft
Neuro: AO x 3
Psych: Calm; Negative Confused
Data Reviewed
-
Labs: Labs Reviewed by me
[2025-03-11] MEDS: MIRALAX 17 GRAMS PO (14:04)
[2025-03-11 15:00] VITALS: BP 120/81
[2025-03-11] MEDS: XANAX 0.5 MG PO ×2 (15:17→21:48)
[2025-03-11] MEDS: TYLENOL 650 MG PO ×2 (15:17→20:12)
[2025-03-11] MEDS: LIPITOR 10 MG PO (21:51)
[2025-03-11] MEDS: NEURONTIN 400 MG PO (21:52)
[2025-03-11] MEDS: SINGULAIR 10 MG PO (21:52)
[2025-03-11 23:04] VITALS: BP 127/59
[2025-03-12] MEDS: TYLENOL PO ×5 (03:03→23:30)
[2025-03-12] MEDS: TYLENOL 650 MG PO ×2 (03:16→19:29)
[2025-03-12] MEDS: SYNTHROID 75 MCG PO (06:20)
[2025-03-12 07:10] VITALS: BP 152/66
[2025-03-12] MEDS: NON-FORMULARY ITEM 1 UNIT INH (07:32)
[2025-03-12 08:24] LABS: Hematocrit 29.5 % (37.0-47.0); Hemoglobin 9.6 g/dL (12.0-16.0); Mean Corp Hgb Conc. 32.5 g/dL (33.0-37.0); Mean Corpuscular Volume 83.6 fL (81.0-99.0); Platelet Count 416 10^3/uL (130-400); Red Cell Dist. Width 13.8 % (11.5-14.5)
[2025-03-12] MEDS: ASPIRIN 325 MG PO (09:13)
[2025-03-12] MEDS: ZYRTEC 5 MG PO (09:14)
[2025-03-12] MEDS: VITAMIN D3 (cholecalciferol) 50 MCG PO (09:15)
[2025-03-12] MEDS: EFFEXOR XR 112.5 MG PO (09:15)
[2025-03-12] MEDS: PROTONIX 40 MG PO (09:15)
[2025-03-12] MEDS: COLACE 100 MG PO ×2 (09:15→19:29)
[2025-03-12] MEDS: MIRALAX 17 GRAMS PO (09:16)
[2025-03-12] MEDS: ROXICODONE 5 MG PO ×2 (09:40→19:30)
[2025-03-12 11:15] LABS: Blood Urea Nitrogen 13 mg/dl (7-17); Calcium 7.7 mg/dl (8.4-10.2); Carbon Dioxide 30 mmol/L (22-30); Chloride 99 mmol/L (98-107); Estimated Creatinine Clearance 59 ml/min; Glucose 78 mg/dl (70-99); Potassium 4.6 mmol/L (3.5-5.1); Sodium 131 mmol/L (135-145); eGFR > 60.00
--- NOTE | 2025-03-12 13:01 | W.PN.HOSP.TC ---
Addendum entered and electronically signed by Ron Cuellar MD 03/15/25 16:11:
Na as low as 127 suggestive of hyponatremia
Addendum entered and electronically signed by Ron Cuellar MD 03/15/25 16:03:
#Nondisplaced proximal left femur fracture -due to other etiology
Original Note:
Today's Communication/Plan
-
Continue with current treatment
Ongoing disposition efforts
Assessment / Plan
Assessment / Plan
#Nondisplaced proximal left femur fracture
#Recent left total hip arthroplasty on 03/02/[address] Patel
Reviewed by orthopedics who recommends conservative management. No OR planned. Advises strict nonweightbearing on the left leg.
Pain control. Bowel regimen.
Continue aspirin for DVT prophylaxis
CW PT OT RX.. Nonweightbearing on the left leg.
Leukocytosis
Patient afebrile
Denies any shortness of breath or urinary symptoms of dysuria frequency
suspect reactive to fracture. Improving without tx
Continue to follow for any development of focal symptoms
# Hyponatremia - Euvolemic clinically
Na 131 -follow for now
#Primary hypertension
Continue low-dose Norvasc with hold parameters
#Mood disorder/anxiety
Continue venlafaxine
Continue with Xanax as needed. Patient apparently was prescribed 1 mg to be taken as needed and she was cutting them into quarters and taking them. Patient feeling anxious with the situation around. Will increase the dose to Xanax 0.5 mg as needed
#Asthma
Continue with Breo and Singulair
#Hypothyroidism
Continue with Synthroid
Hyperlipidemia
Continue with low-dose statin
DVT prophylaxis with aspirin/SCD prophylaxis
Full code
Needs rehab on discharge
Case management working on placement
Anticipated Discharge: Within 24 hours
Subjective/Interval History
-
Date of Service: March 12, 2025
Feels better. She feels Xanax of anxiety and as well as muscle spasms. Voicing no new specific complaints.
Denies shortness of breath or chest pain.
Denies nausea vomiting. Denies constipation
No dizziness.
Objective Data
-
Labs:
Laboratory Results
03/12/25
06:29
WBC 11.7 H
Hgb 9.6 L
Hct 29.5 L
Plt Count 416 H
Sodium 131 L
Potassium 4.6
Chloride 99
Carbon Dioxide 30
BUN 13
Creatinine 0.5 L
Glucose 78
Calcium 7.7 L
Vital Signs:
Vital Signs
Temp Pulse Resp BP Pulse Ox
97.5 F 80 16 152/66 97
03/12/25 07:10 03/12/25 07:35 03/12/25 07:35 03/12/25 07:10 03/12/25 07:35
I&O
03/11/25 03/12/25 03/13/25
06:59 06:59 06:59
Intake Total 920 / 920 480 / 480
Output Total 1200 / 1200
Balance -280 / -280 480 / 480
Physical Exam
-
General: Comfortable
Respiratory: Non Labored Respirations; Negative Accessory Resp Muscle Use
Cardiac: Regular Rhythm and S1/S2; Negative Tachycardic
Neuro: AO x 3
Psych: Calm
Data Reviewed
-
Labs: Labs Reviewed by me
[2025-03-12 14:39] VITALS: BP 107/71; PULSE 104; O2SAT 95
[2025-03-12 14:42] VITALS: BP 107/71; O2SAT 98
[2025-03-12 15:35] VITALS: BP 118/66
[2025-03-12] MEDS: XANAX 0.5 MG PO (17:14)
[2025-03-12] MEDS: NEURONTIN 400 MG PO (21:09)
[2025-03-12] MEDS: LIPITOR 10 MG PO (21:09)
[2025-03-12] MEDS: SINGULAIR 10 MG PO (21:09)
[2025-03-12 23:03] VITALS: BP 125/67
[2025-03-13] MEDS: TYLENOL 650 MG PO (03:28)
[2025-03-13] MEDS: SYNTHROID 75 MCG PO (05:18)
[2025-03-13 07:25] LABS: Hematocrit 29.9 % (37.0-47.0); Hemoglobin 9.6 g/dL (12.0-16.0); Mean Corp Hgb Conc. 32.1 g/dL (33.0-37.0); Mean Corpuscular Volume 84.7 fL (81.0-99.0); Platelet Count 446 10^3/uL (130-400); Red Cell Dist. Width 14.2 % (11.5-14.5)
[2025-03-13 07:29] VITALS: BP 125/80
[2025-03-13] MEDS: NON-FORMULARY ITEM 1 UNIT INH (07:36)
[2025-03-13 07:54] LABS: Blood Urea Nitrogen 17 mg/dl (7-17); Calcium 8.8 mg/dl (8.4-10.2); Carbon Dioxide 28 mmol/L (22-30); Chloride 102 mmol/L (98-107); Estimated Creatinine Clearance 59 ml/min; Glucose 88 mg/dl (70-99); Potassium 4.9 mmol/L (3.5-5.1); Sodium 133 mmol/L (135-145); eGFR > 60.00
[2025-03-13] MEDS: COLACE 100 MG PO (08:21)
[2025-03-13] MEDS: ZYRTEC 5 MG PO (08:21)
[2025-03-13] MEDS: VITAMIN D3 (cholecalciferol) 50 MCG PO (08:23)
[2025-03-13] MEDS: ASPIRIN 325 MG PO (08:23)
[2025-03-13] MEDS: PROTONIX 40 MG PO (08:23)
[2025-03-13] MEDS: EFFEXOR XR 112.5 MG PO (08:23)
[2025-03-13] MEDS: TYLENOL PO ×3 (08:30→17:06)
[2025-03-13] MEDS: MILK OF MAGNESIA 30 ML PO (08:33)
[2025-03-13] MEDS: MIRALAX PO (08:38)
[2025-03-13] MEDS: XANAX 0.5 MG PO ×2 (09:44→18:10)
[2025-03-13] MEDS: DULCOLAX 10 MG RECTAL (10:42)
--- NOTE | 2025-03-13 11:00 | CM ---
Addendum entered by Marcela Márquez 03/13/25 11:47:
Auth approved beginning today, 03/13 next review date is 03/17
Auth ref # [id number]
Ambulance auth ref # [id number]
Transport forms on chart, will schedule
Updated patient bedside. IMM verbally reviewed, copy provided, copy on chart
Original Note:
Patient accepted at [facility] today
Called [employer] to initiate auth, spoke w/ Melania. Information provided, CM will receive call back w/ auth approval
Ambulance transport at d/c
[facility]
Report: [phone]

Plan: D/c to [facility] today, awaiting auth
--- NOTE | 2025-03-13 14:21 | PN.CDI ---
CDI
- -
CDI:
Physician Documentation Request
Admit Date: 03/09/25 12:31
Dear Doctor,
Please review the following and provide your response in the progress notes.
Clinical Indicators:
Pt admitted for Nondisplaced proximal left femur fracture with Recent left total hip arthroplasty
03/09 Orthopedics Note: 'Last night, she was using the bedside commode when she felt severe pain in her left groin. She states that she did not fall to the floor. She managed to get herself back in bed and then this morning she continued with pain and
was unable to bear any weight. She does report a popping feeling in her groin at the onset of her pain.....Past medical history.. Osteoporosis,..
Pt's home medications include: denosumab 60 mg/mL subcutaneous syringe (Prolia) 60 mg SC [id number]
cholecalciferol (vitamin D3) 50 mcg (2,000 unit) capsule (Vitamin D3) 50 mcg PO DAILY Supplement
Please provide further specificity regarding the diagnosis of fracture:
Etiology
Traumatic
Pathologic due to osteoporosis
Due to a combination of trauma and a pathological process
but the trauma alone would not likely have been sufficient
to cause the fracture
Other
Use of terms such as suspected, likely, concern for, or probable (associated with a specific diagnosis that is being evaluated, monitored, or treated as if it exists) are acceptable and can be coded in the inpatient setting, when documented at the
time of discharge.
Thank you,
Katelyn Patterson RN, BSN
CDI Specialist
[employer] [facility]
Please use your independent medical judgment in providing your response.
[2025-03-13 15:01] VITALS: BP 137/65
== END 2025-03-13 19:02 | DRG 536 ==
LOC: 4 WEST ACU 12:31
PROVIDERS: Student in an Organized Health Care Education/Training Program; ADMITTING PHYSICIAN Hospitalist; ATTENDING PHYSICIAN Internal Medicine; EMERGENCY PHYSICIAN Emergency Medicine; FAMILY PHYSICIAN Nurse Practitioner Adult Health; OTHER PHYSICIAN Specialist
DX: S72.002A Fracture of unspecified part of neck of left femur, initial encounter for closed fracture (principal); E87.1 Hypo-osmolality and hyponatremia; M97.02XA Periprosthetic fracture around internal prosthetic left hip joint, initial encounter; W06.XXXA Fall from bed, initial encounter; Y93.89 Activity, other specified; Y92.9 Unspecified place or not applicable; I10 Essential (primary) hypertension; J98.4 Other disorders of lung; J44.9 Chronic obstructive pulmonary disease, unspecified; K58.1 Irritable bowel syndrome with constipation; M19.90 Unspecified osteoarthritis, unspecified site; F41.9 Anxiety disorder, unspecified; D72.829 Elevated white blood cell count, unspecified; F32.A Depression, unspecified; E06.3 Autoimmune thyroiditis; Z96.642 Presence of left artificial hip joint; Z98.1 Arthrodesis status; Z87.891 Personal history of nicotine dependence; Z90.49 Acquired absence of other specified parts of digestive tract; Z88.1 Allergy status to other antibiotic agents; Z88.3 Allergy status to other anti-infective agents; Z88.8 Allergy status to other drugs, medicaments and biological substances; Z79.890 Hormone replacement therapy; Z79.82 Long term (current) use of aspirin; Z79.51 Long term (current) use of inhaled steroids; Z86.12 Personal history of poliomyelitis
CPT/HCPCS: 73502; 73700; 80048; 80053; 85025; 85027; 86850; 86900; 86901; 94640; 96374; 96375; 97163; 97167; 97530; 97535; 99285

== ENCOUNTER 2025-04-20 02:50 | Inpatient (IN) | payer OTHER, SELFPAY ==
[2025-04-19 19:54] VITALS: BP 169/84
[2025-04-19 20:26] LABS: Hematocrit 33.1 % (37.0-47.0); Hemoglobin 10.9 g/dL (12.0-16.0); Mean Corp Hgb Conc. 32.9 g/dL (33.0-37.0); Mean Corpuscular Volume 78.8 fL (81.0-99.0); Nucleated Red Blood Cells % 0 %; Platelet Count 271 10^3/uL (130-400); Red Cell Dist. Width 14.0 % (11.5-14.5)
[2025-04-19 20:43] LABS: COVID-19 Antigen Negative (Negative)
[2025-04-19 20:50] LABS: ALT (SGPT) 115 U/L (0-35); AST (SGOT) 101 U/L (14-36); Albumin 3.5 g/dl (3.5-5.0); Alkaline Phosphatase 218 U/L (38-126); Blood Urea Nitrogen 7 mg/dl (7-17); Calcium 8.2 mg/dl (8.4-10.2); Carbon Dioxide 25 mmol/L (22-30); Chloride 96 mmol/L (98-107); Estimated Creatinine Clearance 57 ml/min; Glucose 106 mg/dl (70-99); Potassium 3.6 mmol/L (3.5-5.1); Sodium 128 mmol/L (135-145); Total Protein 5.8 g/dl (6.3-8.2); eGFR > 60.00
[2025-04-19 21:00] VITALS: BP 170/82
[2025-04-19 21:38] VITALS: BP 142/79
[2025-04-19 21:44] LABS: Urine Character Clear (Clear)
[2025-04-19 21:57] LABS: Urine Red Blood Cell 0-2 /HPF (0-2); Urine White Cell 16-20 /HPF (0-5)
[2025-04-19 22:00] VITALS: BP 157/83
[2025-04-19] MEDS: NSS 1000 IV (22:09)
[2025-04-20] VITALS (20 sets, daily range): BP systolic 109–172; BP diastolic 55–113; BMI 19.2
[2025-04-20] MEDS: ATIVAN 0.5 MG PO (00:27)
--- NOTE | 2025-04-20 01:32 | HPS.HSE ---
Family Physician
-
Family Physician: Rosa Mendez PA-C
Chief Complaint
-
Weakness
History of Present Illness
This is a 85-year-old female with past medical history significant for COPD, restrictive lung disease, hypothyroidism, hypertension, end-stage osteoarthritis status post left total hip arthroplasty complicated by a nondisplaced fracture who now
presents to the emergency department with weakness.
Patient recently had left total hip arthroplasty in February complicated by nondisplaced Franklyn prosthetic hip fracture felt not to require surgical management at that time. She was in the hospital and suffered anxiety episodes for which Xanax was
increased. After discharge from the hospital the patient was sent to [facility]. Then she underwent rehab and while there she developed urinary symptoms and was found to have a urinary tract infection. She was initially treated
with Keflex. After completing a course she then had another course of antibiotics with amoxicillin. After returning home the patient fell she still continued to have urinary symptoms. She had a urine culture drawn which showed polymicrobial
growth and she was started on Macrobid. She has been taking Macrobid for the last 5 days. She stated that after starting Macrobid she had developed abdominal symptoms including nausea and some vomiting without diarrhea. She reports some
epigastric and left upper chest abdominal discomfort. She says she has not been able to tolerate p.o. due to the persistent nausea. She also feels some heartburn. Patient appears very anxious at this time and states that she feels that her
thoughts are racing and feels internally 'revved up.'
Patient reports prior side effects to Macrobid but she is not able to tell me exactly what. She currently states she still has some urinary symptoms but has not urinated due to not having much p.o. over the last 48 hours. After bolus of IV fluids
in ED she did urinate without any dysuria. She denies any cough. She denies feeling short of breath. She denies having any palpitations.
In the emergency department she was afebrile, blood pressure was 150/50 with a pulse rate of 120 and tachypneic to the low 30s. Oxygen saturation was 94% on room air. ECG showed sinus tachycardia at a rate of 115 otherwise unremarkable. CBC was
unremarkable, electrolytes notable for a sodium of 138 but otherwise unremarkable, BUN and creatinine were normal. She has mild elevations in AST and ALT as well as alk phos which is new compared to prior. Her UA was likely contaminated given
discriminant cells platelets show trace signs of infection.
Medical History
Past Medical History
Past Medical History: Reports Other
Additional Past Medical History:
Hypertension
Restrictive lung disease
Chronic obstructive pulmonary disease with asthmatic component
Chronic dyspnea on exertion
Irritable bowel syndrome with constipation
Severe osteoarthritis
Eve thyroiditis status post partial thyroidectomy now with hypothyroidism
Depression
Hyperlipidemia
Past Surgical History: Reports Other
Additional Past Surgical History:
Severe osteoarthritis with left hip total hip arthroplasty on 03/02/2025
Scoliosis w/spinal fusion
Right partial thyroidectomy
Cholecystectomy
Social History
Tobacco: Former Smoker
Personal:
Living: With Family
Family History
Family History: Not pertinent
Allergies / Home Medications
Allergies reflects when Allergies were last updated in [employer]
Home Medications with original date entered in [employer]
Allergy/Medication List:
Allergies
Allergy/AdvReac Type Severity Reaction Status Date / Time
albuterol Allergy Unknown Verified 03/02/25 06:54
ciprofloxacin Allergy swelling Verified 03/02/25 06:54
mouth
erythromycin base Allergy See Comment Verified 03/02/25 14:27
mepivacaine HCl (From Allergy See Comment Verified 03/02/25 14:27
Carbocaine)
nitrofurantoin (From Allergy numbing & Verified 03/02/25 06:54
Macrobid) tingling
in lips &
mouth
bactrim Allergy GI upset, Uncoded 03/02/25 06:54
nausea
Home Medications
levothyroxine 75 mcg tablet 75 mcg PO DAILY Thyroid 06/16/09
cetirizine 10 mg tablet (Zyrtec) 10 mg PO DAILY Allergies 02/16/25
cholecalciferol (vitamin D3) 50 mcg (2,000 unit) capsule (Vitamin D3) 50 mcg PO DAILY Supplement 02/16/25
denosumab 60 mg/mL subcutaneous syringe (Prolia) 60 mg SC [id number] 02/16/25
fluticasone furoate 100 mcg-vilanterol 25 mcg/dose inhalation powder (Breo Ellipta) 1 inh inhalation DAILY Lung/Breathing Issues 02/16/25
fluticasone propionate 50 mcg/actuation nasal spray,suspension 1 spray intranasal DAILY PRN Allergies 02/16/25
gabapentin 400 mg capsule 400 mg PO HS Neurological Condition 02/16/25
levalbuterol tartrate 45 mcg/actuation aerosol inhaler 2 inh inhalation Q6H PRN wheeze 02/16/25
levothyroxine 75 mcg tablet 150 mcg PO SA 02/16/25
montelukast 10 mg tablet (Singulair) 10 mg PO HS Allergies 02/16/25
omeprazole 20 mg tablet,delayed release 20 mg PO DAILY Gastrointestinal Issue 02/16/25
peppermint oil 2 cap PO DAILY 02/16/25
simvastatin 10 mg tablet 10 mg PO HS High Cholesterol 02/16/25
amlodipine 2.5 mg tablet 2.5 mg PO HS Blood Pressure #1 tab 03/03/25
aspirin 325 mg tablet 325 mg PO DAILY #30 tabs 03/03/25
docusate sodium 100 mg capsule 100 mg PO BID #30 caps 03/03/25
acetaminophen 500 mg tablet 500 mg PO Q6H 03/09/25
alprazolam 1 mg tablet 0.25 mg PO DAILYPRN PRN anxiety 03/09/25
diphenhydramine HCl 25 mg capsule 25 mg PO HSPRN PRN insomnia 03/09/25
lidocaine 4 % topical patch 1 patch topical DAILY left hip 03/09/25
oxycodone 5 mg tablet 5 mg PO Q6H PRN moderate-severe pain 03/09/25
sennosides 8.6 mg tablet (Rosalva-dixon) 17.2 mg PO BID PRN constipation 03/09/25
venlafaxine 37.5 mg capsule,extended release 24 hr 112 mg PO DAILY 03/09/25
Review of Systems
-
History Source: Patient
Constitutional: Reports Fatigue
EENT: Reports No Symptoms
Respiratory: Reports No Symptoms
Cardiac: Denies Chest Pain, Palpitations or Syncope
Abdomen/GI: Reports No Symptoms
: Reports No Symptoms
Musculoskeletal: Reports See HPI
Skin: Reports No Symptoms
Neurological: Reports No Symptoms
Endocrine: Reports No Symptoms
Hematologic/Lymphatic: Reports No Symptoms
Psych: Reports No Symptoms
Physical Exam
Vital Signs
Vital Signs
Temp Pulse Resp BP Pulse Ox
98.4 F 120 36 156/55 94
04/20/25 00:17 04/20/25 00:17 04/20/25 00:17 04/20/25 00:17 04/20/25 00:17
Physical Exam
General: Well Developed, Well Nourished and No Apparent Distress
HEENT: NormoCephalic, Moist mucous membranes and Atraumatic
Respiratory: Clear
Cardiac: S1/S2 and Regular Rhythm; No Murmur or Rub
GI: Soft, Non Tender, Non Distended and Normal Bowel Sounds; No Organomegaly
Rectal: Deferred by Provider
Musculoskeletal: No Clubbing, No Cyanosis, No Edema and Other (Left hip bruising with dressing noted. )
Skin: No Rash
Neuro: Awake, Alert, Oriented, AO x 3, No Motor Deficits and Nonfocal/grossly intact
Psych: Calm
Laboratory Results
-
04/19/25 20:15
04/19/25 20:15
Laboratory Results
Lactic Acid 0.9 mmol/L (0.7-2.0) 04/19/25 20:15
Total Bilirubin 0.5 mg/dl (0.2-1.3) 04/19/25 20:15
AST 101 U/L (14-36) H 04/19/25 20:15
ALT 115 U/L (0-35) H 04/19/25 20:15
Alkaline Phosphatase 218 U/L (38-126) H 04/19/25 20:15
Impression/Plan
-
IMPRESSION:
Patient with past medical history significant for history of lung disease secondary to scoliosis, COPD not on home O2, hypothyroid, depression, anxiety, hypertension, status post 2 recent left hip arthroplasty complicated by nondisplaced fracture,
comes into the emergency department with nausea and intermittent vomiting, decreased p.o. intake and lethargy and weakness. This is in the setting of treatment with Macrobid for a persistent urinary tract infection. UA today is undetermined as she
has been on antibiotics until yesterday. She is afebrile and hemodynamically stable but tachycardic without any hypoxia. She denies any shortness of breath but she does report some chest discomfort. Labs notable for hyponatremia and a mild
transaminitis.
PLAN:
Weakness/lethargy -suspect this is secondary to dehydration in the setting of poor p.o. intake from nausea vomiting. Cannot rule out ongoing urinary tract infection entirely but patient is not particularly symptomatic and has no signs of sepsis.
- Admit to telemetry for now due to ongoing tachycardia
- Hydration as above
- Hold Macrobid
- Obtain urine culture, hold antibiotics pending culture results will change using vital signs
- Antiemetics
- Check orthostatics
Hyponatremia�sodium 128, sodium was 131 at time of leaving hospital last month. She is on venlafaxine and has significant decrease in p.o. intake over the last few days. I suspect she has more of a euvolemic hyponatremia at this time
- Obtain TSH,
- Urine sodium, urine osmolality
- Status post 1 L of normal saline, continue normal saline at 80 cc an hour for now
- Gentle free water restrictions to 1800
- Will continue venlafaxine unless the sodium worsens
Tachycardia -suspect from anxiety but cannot rule out physiologic versus pathologic etiology is entirely, no chest pain or shortness of breath at this time.
- Check TSH
- Continue gentle hydration and monitoring on telemetry
- Check D-dimer
- she seems anxious almost agitated. Trial of klonopin with prn xanax. Continued venlafaxin.
Transaminitis -nausea, vomiting, some abdominal discomfort suspicious for hepatitis versus biliary disease
- Check lipase
- Right upper carotid ultrasound
- Trend LFTs
COPD/restrictive lung disease
- No acute symptoms, continue home inhalers, continue montelukast
Hypertension
- Continue Norvasc
DVT prophylaxis�Lovenox subcu
CODE STATUS�full code
--- NOTE | 2025-04-20 02:36 | ED.GENMED ---
History of Present Illness
General
Chief Complaint: Weakness
Source: patient and ambulance crew
Exam Limitations: none
Time Seen by Provider: 04/19/25 21:17
Nursing documentation reviewed up to this point in time: agreed with
History of Present Illness
History of Present Illness:
Note:
CHIEF COMPLAINT(S)
Nausea, ongoing urinary tract infection symptoms, mental cloudiness.
HISTORY OF PRESENT ILLNESS
The patient is an 85-year-old female who reports experiencing significant nausea. The patient underwent a left hip replacement at the end of February, after which she experienced a spontaneous femur fracture six days later, necessitating hospitalization
and subsequent rehabilitation. During the rehabilitation period, the patient noticed a persistent strong odor in her urine and was diagnosed with a urinary tract infection, for which she was initially prescribed Cefalexin for five days and
subsequently Amoxicillin, completing a total course of ten days. Despite this treatment, the patient continued to experience symptoms of the urinary tract infection and upon further testing by a visiting nurse, she was found to have an infection
with Escherichia coli, Klebsiella pneumoniae, and possibly another microorganism. As a result, she was prescribed Nitrofurantoin, which he had just started, though she expressed concern due to a past adverse reaction to this medication. In addition
to nausea, the patient reports feeling very dry, weak, and mentally unclear. She has not been vomiting but feels she could. Currently, he is experiencing a fast heart rate and elevated blood pressure. She also noted some shortness of breath, which
is atypical for her.
PAST MEDICAL AND SURGICAL HISTORY
Left hip replacement in February, followed by a spontaneous femur fracture.
ALLERGIES
None reported.
PAST SURGICAL HISTORY
Left hip replacement.
MEDICATIONS
Currently taking Nitrofurantoin, but did not take it today due to concerns about previous adverse reactions.
REVIEW OF SYSTEMS
- General: Nausea, feeling very dry, weakness.
- Neurological: Mental fogginess, unclear thinking.
- Cardiovascular: Fast heart rate.
- Respiratory: Shortness of breath.
- Gastrointestinal: No vomiting, but feels it might occur.
PHYSICAL EXAM
General: Alert, but no acute distress observed.
Skin: Warm, dry.
Head: Normocephalic, atraumatic.
Neck: Supple, trachea midline.
Eyes, Ears, Nose, Mouth and Throat: Oral mucosa moist.
Cardiovascular: Tachycardia with a heart rate of 118 beats per minute, no peripheral edema.
Respiratory: Respirations are non-labored.
Gastrointestinal: Abdomen nondistended.
Back: Normal range of motion, normal alignment.
Musculoskeletal: Normal range of motion, normal strength.
Neurological: Alert, but reports unclear thinking, no focal neurological deficits observed.
Psychiatric: Cooperative, appropriate mood and affect.
PROBLEM LIST
Acute: Nausea, urinary tract infection symptoms with Escherichia coli and Klebsiella pneumoniae, mental cloudiness, tachycardia.
PLAN
- Administer intravenous fluids to address dehydration.
- Order antiemetic to manage nausea.
- Consider CT of the head due to the reported mental cloudiness.
- Evaluate antibiotic therapy in light of previous adverse reaction to Nitrofurantoin.
- Monitor heart rate and blood pressure considering acute tachycardia and hypertension.
DIFFERENTIAL DIAGNOSIS
The Differential Diagnosis includes, in no particular order and is not limited to:
1. Urinary Tract Infection
2. Dehydration
3. Antibiotic-associated side effects
4. Electrolyte imbalance
5. Anemia
6. Cardiac arrhythmia
7. Cerebrovascular accident
8. Medication-induced delirium
9. Post-surgical complications
10. Sepsis
Disposition:
SUMMARY OF ENCOUNTER
The patient is an 85-year-old female presented to the emergency department by EMS with complaints of weakness. She was found to have hyponatremia and sinus tachycardia. The patient reported nausea and vomiting, which contributed to her dehydration.
Transaminitis was also noted during the visit.
DISPOSITION
Admit to hospitalist service.
ASSESSMENT
The patient is experiencing issues related to hyponatremia, dehydration likely secondary to nausea and vomiting, sinus tachycardia, and transaminitis.
PLAN
The patient has been admitted to the hospitalist service for further evaluation and management of her hyponatremia, dehydration, nausea and vomiting, and transaminitis.
MEDICATION RECONCILIATION
1. Examination of current medications and adjustment as needed considering the diagnosis of hyponatremia, nausea, and dehydration.
2. Prescription drug management for nausea and dehydration, potentially adjusting antibiotic therapy due to previous adverse reactions.
MEDICAL DECISION MAKING
1. Number and Complexity of Problems Addressed: Chronic conditions affecting care include hyponatremia, dehydration secondary to nausea and vomiting, sinus tachycardia, and transaminitis. Differential Diagnosis: Urinary Tract Infection, Dehydration,
Antibiotic-associated side effects, Electrolyte imbalance, Anemia, Cardiac arrhythmia, Cerebrovascular accident, Medication-induced delirium, Post-surgical complications, Sepsis.
2. Data:
Category 1:
- Independent review of lab results included findings of hyponatremia and transaminitis.
- Non-emergency department records reviewed to analyze the current medical history, including past surgery details.
Category 3:
- Discussion of management with hospitalist service regarding the patients admit for further evaluation.
3. Risk:
- Prescription medication was prescribed and adjusted considering the hyponatremia and dehydration management.
- Consideration of Admission/Observation: Escalation of care including admission was considered and implemented due to the complexity and risk of the patients presenting complaint, exam findings, and underlying comorbidities.
DIAGNOSIS
1. Hyponatremia (E87.1)
2. Dehydration (E86.0)
3. Transaminitis (R74.0)
4. Sinus Tachycardia (R00.0)
5. Nausea and Vomiting (R11.2)
Phy Exam
Physical Exam
Physical Exam:
.
Sepsis
Sepsis Screening
Sepsis Assessment: Sepsis Ruled Out
Sepsis Screen
Sepsis Screen: Sepsis Ruled Out
Date: 04/22/25
Time: 04:13
Course
Orders/Labs/Results
Orders:
Orders
04/19/25 20:06
Electrocardiogram (*1) Urgent
Reason for Study: Other
Other Reason for Exam: Possible Sepsis
O2 Therapy [RESP] Urgent
Titrate/Wean O2 to maintain O2 sat greater than (%): 93
Special Instructions: TO MAINTAIN CONTINUOUS O2 SATS > OR = 93%
04/19/25 20:07
EKG- Treatment ONCE
04/19/25 20:15
COVID-19 Antigen Urgent
Source: Nasal Swab
Complete Blood Count/With Diff Urgent
Comprehensive Metabolic Panel Urgent
Lactic Acid Q4H
Comment: ON ICE, CANCEL 2ND ORDER IF FIRST LACTIC ACID LEVEL <2
Influenza A+B Rapid Molecular Urgent
YEN Source: Nasal Swab
Specimen Description:
04/19/25 21:37
Urinalysis Reflex To Culture Urgent
Date Specimen was Collected: 04/19/25
Time Specimen was Collected: 21:34
Urine Microscopic Reflex Cult Urgent
Urine Culture Urgent
YEN Source: U
Specimen Description:
Date Specimen was Collected: 04/19/25
Time Specimen was Collected: 21:34
04/19/25 21:57
0.9% Sodium Chloride 1000 ml [Nss] 1,000 ml IV BOLUS
04/20/25 00:20
Lorazepam [Ativan] 0.5 mg PO NOW STA
04/20/25 01:20
US Abdomen Complete/Upper Urgent
Comment:
Reason For Exam: elev LFTs
04/20/25 02:09
Admit/Transfer Patient As Directed
Co-Sign Provider:
Level of Care: Inpatient admission
Assign to:: Telemetry
Physician / Group: Gerry
Diagnosis: Hyponatremia
Reason for Telemetry: Other
Other Reason for Telemetry: tachycardia
Date to Stop Telemetry: 04/22/25
Time to Stop Telemetry: 11:00
Reason for Hospitalization: weakness
Expected length of stay greater than two midnights?: Yes
ELOS- Estimated Length of Stay in days: 2
I certify the patient meets the requirements for IP care: Yes
PRN Pain Medication Management As Directed
May give lesser potent ordered pain med per pt: Yes
preference::
Protocol:: Medication orders for pain may be administered in a
manner that supports deferring to patient preference
when the pt is:
- Requesting an ordered lesser potent pain medication.
Least to most potent pain medications are defined
as: acetaminophen < NSAID < tramadol < opioids
(morphine, oxycodone, hydromorphone).
- Requesting a lesser dose of the same medication IF
ORDERED.
- Requesting a less intrusive route of administration
if both routes are prescribed by the provider (PO <
IV).
04/20/25 02:15
Code Status As Directed
Resuscitation Status: Full Code
04/20/25 02:25
Urine Osmolality Random [Osmolality, Random Urine] Stat
Urine Sodium Stat
04/20/25 04:37
Ondansetron Injectable [Zofran] 4 mg IV Q6HPRN PRN
04/20/25 04:57
Acetaminophen [Tylenol] 650 mg PO Q4HPRN PRN
Alprazolam [Xanax] 0.5 mg PO [id number] PRN anxiety
Bisacodyl [Dulcolax] 10 mg RECTAL [id number] PRN
Cetirizine HCl [Zyrtec] 10 mg PO DAILY PRN Allergies
Clonazepam [Klonopin] 0.5 mg PO NOW STA
Dextrose 5%/0.9%Sodchl 1000 ml [D5/0.9% Sodium Chloride] 1,000 ml IV 80 mls/hr
Docusate W/Senna [Senokot-S] 1 tablet PO BIDPRN PRN
Ipratropium Nebs [Atrovent Nebules] 0.5 mg INH R Q4HPRN PRN
Oxycodone [Roxicodone] 5 mg PO Q4HPRN PRN
Polyethylene Glycol Powder [Miralax] 17 grams PO DAILYPRN PRN
04/20/25 04:57
Activity As Directed
Activity Level: With Assistance
Intake/ Output As Directed
Frequency: Per unit guidelines
Orthostatic Vital Signs As Directed
Orthostatic VS Frequency: Daily
Vital Signs As Directed
Frequency: Per unit guidelines
Pulse Ox/spot Check [RESP] Routine
Quantity: 1
DX Deep Vein Thrombosis Video Routine
04/20/25 05:05
Basic Metabolic Panel IN AM
Complete Blood Count/No Diff IN AM
D-Dimer IN AM
LFT [Amwlc-Pbio-Ktnweis] IN AM
TSH Reflex To Free T4 IN AM
04/20/25 Breakfast
Regular
At Your Request: Full Participation
Fluid Restriction: 1800 mL/day (60 oz)
Levothyroxine [Synthroid] 75 mcg PO SUMOTUWETHFR@0600
04/20/25 08:00
Budesonide/Formoterol 160/4.5 [Symbicort 160/4.5 Mcg Inhaler] 2 puff INH R BID
Polyethylene Glycol Powder [Miralax] 17 grams PO DAILY
Venlafaxine Extended Release [Effexor Xr] 112.5 mg PO DAILY
04/20/25 18:00
Enoxaparin Sodium [Lovenox] 40 mg SC QPM
04/20/25 22:00
Amlodipine [Norvasc] 2.5 mg PO HS
Atorvastatin [Lipitor] 10 mg PO HS
Gabapentin [Neurontin] 400 mg PO HS
Montelukast Sodium [Singulair] 10 mg PO HS
04/22/25 11:00
DC Protocol for Telemetry ONCE
04/25/25 08:00
Levothyroxine [Synthroid] 150 mcg PO SA
Abnormal Lab Results
04/19/25 04/19/25
20:15 21:37
Hgb 10.9 L g/dL
(12.0-16.0)
Hct 33.1 L %
(37.0-47.0)
MCV 78.8 L fL
(81.0-99.0)
MCH 26.0 L pg
(27.0-31.0)
MCHC 32.9 L g/dL
(33.0-37.0)
Abs Immat Gran (auto) 0.1 H 10^3/uL
(0-0.05)
Absolute Neuts (auto) 7.3 H 10^3/uL
(1.4-6.5)
Absolute Lymphs (auto) 0.3 L 10^3/uL
(1.2-3.4)
Immature Gran % 0.9 H %
(0-0.5)
Neutrophils % 89.0 H %
(42.2-75.2)
Lymphocytes % 3.7 L %
(20.5-51.1)
Sodium 128 L mmol/L
(135-145)
Chloride 96 L mmol/L
(98-107)
Creatinine 0.5 L mg/dL
(0.6-1.0)
Glucose 106 H mg/dl
(70-99)
Calcium 8.2 L mg/dl
(8.4-10.2)
AST 101 H U/L
(14-36)
ALT 115 H U/L
(0-35)
Alkaline Phosphatase 218 H U/L
(38-126)
Total Protein 5.8 L g/dl
(6.3-8.2)
Urine Ketones 3+ A
(Negative)
Ur Occult Blood Reflex 1+ A
(Negative)
Leukocyte Esterase Rfl 1+ A
(Negative)
Urine WBC (Reflex) 16-20 A /HPF
(0-5)
Urine Bacteria (Reflex) Few A
(Negative)
04/19/25 20:15
04/19/25 20:15
Vital Signs
Initial and Last Documented VS:
Initial Vital Signs
Temp Pulse Resp BP Pulse Ox
99.2 F 116 26 169/84 95
04/19/25 19:54 04/19/25 19:54 04/19/25 19:54 04/19/25 19:54 04/19/25 19:54
Last Documented Vital Signs
Temp Pulse Resp BP Pulse Ox
97.7 F 82 16 134/66 96
04/22/25 03:42 04/22/25 03:42 04/22/25 03:42 04/22/25 03:42 04/22/25 03:42
*Pulse Oximetry
SaO2: 95
Oxygen Mode of Delivery: Room air
Patient hypoxic: no
*Critical Care Note
Total Time (30-74mins, 75-104mins- exclusive of procedures): Not Applicable
ED Attending Note
-
Portions of this chart may have been created with voice recognition software.� Occasional wrong word or��sound alike� substitutions may have occurred due to the inherent limitations of voice recognition software.
Discharge Plan
Departure
Patient Disposition: Admit
Date of Disposition: 04/20/25
Time of Disposition: 01:17
Presentation/result/management discussed w/ accepting MD/DO: Hospitalist
Discharge Problem:
Weakness, Acute hyponatremia, Nausea and vomiting in adult, Urinary tract infection
Interventions
Interventions:
*Risk Screen - Suicide Last Done: 04/19/25 19:54
*General Assessment Last Done: 04/19/25 19:54
*Neglect/Abuse Screening Last Done: 04/19/25 19:54
*ED- Fall Risk Assessment Last Done: 04/19/25 19:54
*ED COVID-19 Vaccine History Last Done: 04/19/25 19:54
*Nursing Disposition Last Done: 04/20/25 16:47
ED- Cardiac Assessment Last Done: 04/20/25 00:17
ED- Neurological Assessment Last Done: 04/20/25 00:17
ED- Pulmonary Assessment Last Done: 04/20/25 00:17
Discharge Date and Time
Discharge Date/Time: 04/20/25 16:47
[2025-04-20] MEDS: ZOFRAN 4 MG IV ×3 (04:44→21:28)
[2025-04-20] MEDS: KLONOPIN 0.5 MG PO (05:22)
[2025-04-20] MEDS: D5/0.9% SODIUM CHLORIDE 1000 IV (05:22)
[2025-04-20 06:55] LABS: D-Dimer 2.63 ug/mlFEU (0.00-0.50)
[2025-04-20 06:57] LABS: ALT (SGPT) 103 U/L (0-35); AST (SGOT) 63 U/L (14-36); Albumin 3.6 g/dl (3.5-5.0); Alkaline Phosphatase 213 U/L (38-126); Blood Urea Nitrogen 5 mg/dl (7-17); Calcium 8.0 mg/dl (8.4-10.2); Carbon Dioxide 24 mmol/L (22-30); Chloride 99 mmol/L (98-107); Estimated Creatinine Clearance 57 ml/min; Glucose 85 mg/dl (70-99); Potassium 3.5 mmol/L (3.5-5.1); Sodium 131 mmol/L (135-145); Total Protein 6.0 g/dl (6.3-8.2); eGFR > 60.00
[2025-04-20 07:58] LABS: Hematocrit 33.6 % (37.0-47.0); Hemoglobin 10.9 g/dL (12.0-16.0); Mean Corp Hgb Conc. 32.4 g/dL (33.0-37.0); Mean Corpuscular Volume 80.4 fL (81.0-99.0); Platelet Count 316 10^3/uL (130-400); Red Cell Dist. Width 14.2 % (11.5-14.5)
[2025-04-20] MEDS: SYNTHROID 75 MCG PO (08:10)
[2025-04-20] MEDS: EFFEXOR XR 112.5 MG PO (08:11)
[2025-04-20] MEDS: SYMBICORT 160/4.5 MCG INHALER 2 PUFF INH ×2 (08:16→19:59)
--- NOTE | 2025-04-20 09:12 | VNURNOTE ---
Chart reviewed. Patient is current with [facility]. Will continue to follow hospital course and DC plans.
[2025-04-20] MEDS: TYLENOL 650 MG PO (09:40)
[2025-04-20] MEDS: XANAX 0.5 MG PO ×2 (11:58→21:27)
--- NOTE | 2025-04-20 13:41 | W.PN.UPDATE ---
Update Note
Progress Note Update
Seen and admitted by Dr. Garrett this am.
Admitted for weakness. Recently was on abx for UTI. Ongoing dysuria for few days now despite being on abx. She says her last UCX done at her PCPs office showed E. coli, Klebsiella species, Proteus. She started to notice some difficulty urination as
well along with dysuria. She is constipated. Denies prior history of surgeries or fistulas.
UA shows pyuria; urine culture pending. With current dysuria start on empirical ceftriaxone pending culture data.
Sinus tachycardia-patient was having intermittent palpitations. Deformed thoracic cavity. She has has bilateral crackles. Elevated D-dimer noted. Recent lower extremity fracture history noted. Check CT chest to rule out PE and also ultrasound
to rule out DVT.
Discussed the plan with the patient and her at bedside..
[2025-04-20] MEDS: ROCEPHIN 1000 MG IV (14:01)
[2025-04-20] MEDS: STERILE WATER FOR INJECTION 10 ML IV (14:05)
[2025-04-20 17:25] LABS: Hematocrit 31.4 % (37.0-47.0); Hemoglobin 10.2 g/dL (12.0-16.0); Mean Corp Hgb Conc. 32.5 g/dL (33.0-37.0); Mean Corpuscular Volume 79.3 fL (81.0-99.0); Platelet Count 314 10^3/uL (130-400); Red Cell Dist. Width 14.2 % (11.5-14.5)
[2025-04-20 17:38] LABS: APTT 30.9 Sec (23.4-35.0)
[2025-04-20] MEDS: HEPARIN 25000 UNITS/250 ML IV (18:12)
[2025-04-20] MEDS: NEURONTIN 400 MG PO (21:27)
[2025-04-20] MEDS: LIPITOR 10 MG PO (21:27)
[2025-04-20] MEDS: SINGULAIR 10 MG PO (21:27)
[2025-04-20] MEDS: NORVASC 2.5 MG PO (21:27)
[2025-04-20] MEDS: TUMS CHEWABLE TABLET 200 MG PO (21:35)
[2025-04-21] VITALS (9 sets, daily range): BP systolic 123–152; BP diastolic 62–88; PULSE 46–113
[2025-04-21 00:56] LABS: APTT 63.9 Sec (23.4-35.0)
[2025-04-21] MEDS: HEPARIN 4000 UNITS IV ×2 (01:24→16:47)
[2025-04-21] MEDS: SYNTHROID 75 MCG PO (05:50)
[2025-04-21] MEDS: SYMBICORT 160/4.5 MCG INHALER 2 PUFF INH ×2 (07:23→20:06)
[2025-04-21] MEDS: TYLENOL 650 MG PO ×3 (07:41→21:07)
[2025-04-21] MEDS: EFFEXOR XR 112.5 MG PO (07:41)
[2025-04-21 07:58] LABS: Hematocrit 34.9 % (37.0-47.0); Hemoglobin 11.4 g/dL (12.0-16.0); Mean Corp Hgb Conc. 32.7 g/dL (33.0-37.0); Mean Corpuscular Volume 79.5 fL (81.0-99.0); Platelet Count 361 10^3/uL (130-400); Red Cell Dist. Width 14.1 % (11.5-14.5)
[2025-04-21 08:11] LABS: APTT 141.3 Sec (23.4-35.0)
[2025-04-21 08:28] LABS: ALT (SGPT) 79 U/L (0-35); AST (SGOT) 51 U/L (14-36); Albumin 3.7 g/dl (3.5-5.0); Alkaline Phosphatase 221 U/L (38-126); Blood Urea Nitrogen 5 mg/dl (7-17); Calcium 8.5 mg/dl (8.4-10.2); Carbon Dioxide 27 mmol/L (22-30); Chloride 99 mmol/L (98-107); Estimated Creatinine Clearance 55 ml/min; Glucose 105 mg/dl (70-99); Potassium 3.2 mmol/L (3.5-5.1); Sodium 134 mmol/L (135-145); Total Protein 6.2 g/dl (6.3-8.2); eGFR > 60.00
[2025-04-21 08:56] LABS: TSH 2.03 uIU/ml (0.47-4.68)
[2025-04-21] MEDS: SENOKOT-S 1 TABLET PO (11:54)
[2025-04-21] MEDS: XANAX 0.5 MG PO ×2 (13:23→21:36)
[2025-04-21] MEDS: STERILE WATER FOR INJECTION 10 ML IV (13:23)
[2025-04-21] MEDS: ROCEPHIN 1000 MG IV (13:23)
--- NOTE | 2025-04-21 14:24 | W.PN.HOSP.TC ---
Today's Communication/Plan
-
see plan above
Assessment / Plan
Assessment / Plan
Generalized weakness with recent history of UTI and treated with Macrobid
Currently urine culture negative for infection.
She has sinus tachycardia and lower extremity bilateral DVT-unclear of the tachycardia as causing the weakness or a positive reaction to Macrobid. Patient has unexplained liver function tests and generalized feeling of weakness and fatigue.
Hold further antibiotics.
Add beta-blockers for the heart rate. Treat DVT.
Follow LFTs.
Bilateral DVT
Bilateral peroneal vein nonocclusive DVT noted. No obvious evidence of PE on the chest CT but the right lower lobe visualization limited because of dextroscoliosis. Continue with IV heparin till tomorrow. Transition to oral DOAC's. Eliquis
expensive at $174 per month. Case management to check into cost of Xarelto.
Sinus tachycardia
Suspect reactive
Continue with our treatments. And low-dose beta-pavithra. Most recent echo 2 months ago showed normal EF with no significant valvular abnormality
Abnormal LFTs-unclear etiology. Unclear of her reaction to Macrobid use. Advised to avoid in future. Ultrasound of abdomen shows prior cholecystectomy and no acute intra-abdominal process identified. Possible hemangioma noted. Patient aware
about the hemangioma from prior abdominal imaging. Repeat LFTs in a.m. if continued worsening will get a CT of the abdomen pelvis.
Recent UTI.
Patient urine culture is negative. No dysuria today.
Hold further antibiotics and follow-up.
Hyponatremia-continue to follow
Constipation-add senna to bowel regimen.
Hypothyroidism-continue Synthroid. Check TSH.
Full code
PT OT eval
Anticipated Discharge: 24 - 48 hours
Subjective/Interval History
-
Date of Service: April 21, 2025
Feels better today. Less fatigued. Less weak.
Remembers having left calf pain in the preceding days but none now.
This morning she had upper abdominal lower chest discomfort felt like a reflux. Spontaneously resolved.
No dysuria frequency today.
No fever or chills.
Denies shortness of breath.
Objective Data
-
Labs:
Laboratory Results
04/21/25 04/21/25
07:45 15:15
WBC 8.7
Hgb 11.4 L
Hct 34.9 L
Plt Count 361
APTT 141.3 H Pending
Sodium 134 L
Potassium 3.2 L
Chloride 99
Carbon Dioxide 27
BUN 5 L
Creatinine 0.5 L
Glucose 105 H
Calcium 8.5
Total Bilirubin 0.3
AST 51 H
ALT 79 H
Alkaline Phosphatase 221 H
Vital Signs:
Vital Signs
Temp Pulse Resp BP Pulse Ox
98.5 F 110 16 143/88 96
04/21/25 11:00 04/21/25 11:00 04/21/25 11:00 04/21/25 11:00 04/21/25 11:00
I&O
04/20/25 04/21/25 04/22/25
06:59 06:59 06:59
Intake Total 1160 / 1160
Output Total 300 / 300 300 / 300
Balance -300 / -300 1160 / 1160 -300 / -300
Physical Exam
-
General: Comfortable
Respiratory: Clear to Auscultation and Non Labored Respirations; Negative Accessory Resp Muscle Use
Cardiac: Regular Rhythm, S1/S2 and Tachycardic
GI: Soft, Nontender, Nondistended and Normal Bowel Sounds
Neuro: AO x 3
Data Reviewed
-
CT Scan: Report Reviewed by me (ct chest)
Ultrasound: Report Reviewed by me (LE and Abdomen)
Labs: Labs Reviewed by me
[2025-04-21 15:50] LABS: APTT 61.6 Sec (23.4-35.0)
[2025-04-21] MEDS: HEPARIN 25000 UNITS/250 ML IV (16:50)
--- NOTE | 2025-04-21 17:06 | CM ---
Alert awake oriented patient who lives with her Margarito in a 2 story home with a ramp to enter and lives on first floor. She has a hospital bed ,wc,walker commode.She is assisted in all activities of daily living.She has care givers daily
from 7am to 10am and 5pm to 7 pm. She current with [facility] Eliquis mccollum is $174.55 as per [facility].Pt notified. She was given an Eliquis coupon. Dr Cuellar notified.
[facility] current / Zach
Pharmacy [facility]
PCP Rosa Mendez
PLAN Home with VN
[2025-04-21] MEDS: LIPITOR 10 MG PO (21:08)
[2025-04-21] MEDS: NEURONTIN 400 MG PO (21:08)
[2025-04-21] MEDS: SENOKOT 17.2 MG PO (21:08)
[2025-04-21] MEDS: LOPRESSOR 12.5 MG PO (21:08)
[2025-04-21] MEDS: SINGULAIR 10 MG PO (21:08)
[2025-04-21] MEDS: COLACE 100 MG PO (21:08)
[2025-04-21] MEDS: NORVASC 2.5 MG PO (21:16)
[2025-04-22] VITALS (8 sets, daily range): BP systolic 125–141; BP diastolic 62–95; PULSE 92–112
[2025-04-22 02:39] LABS: APTT 131.3 Sec (23.4-35.0)
--- NOTE | 2025-04-22 02:45 | DOWNTIME ---
There was a [employer] Colorist Downtime on 04/22/2025 from 0100 to 04/22/2025 at 0235. Downtime documentation of patient's care, including medication administrations, has been reconciled in the electronic record per guidelines. Refer to the
patient's paper chart under the miscellaneous tab to see printed paper medication records and downtime forms.
[2025-04-22] MEDS: SYNTHROID 75 MCG PO (05:59)
[2025-04-22 08:17] LABS: Hematocrit 34.4 % (37.0-47.0); Hemoglobin 11.0 g/dL (12.0-16.0); Mean Corp Hgb Conc. 32.0 g/dL (33.0-37.0); Mean Corpuscular Volume 81.5 fL (81.0-99.0); Platelet Count 395 10^3/uL (130-400); Red Cell Dist. Width 14.5 % (11.5-14.5)
[2025-04-22 08:30] LABS: APTT 72.1 Sec (23.4-35.0)
[2025-04-22 08:47] LABS: ALT (SGPT) 65 U/L (0-35); AST (SGOT) 32 U/L (14-36); Albumin 3.4 g/dl (3.5-5.0); Alkaline Phosphatase 174 U/L (38-126); Blood Urea Nitrogen 7 mg/dl (7-17); Calcium 9.0 mg/dl (8.4-10.2); Carbon Dioxide 31 mmol/L (22-30); Chloride 99 mmol/L (98-107); Estimated Creatinine Clearance 55 ml/min; Glucose 92 mg/dl (70-99); Potassium 3.7 mmol/L (3.5-5.1); Sodium 135 mmol/L (135-145); Total Protein 5.8 g/dl (6.3-8.2); eGFR > 60.00
[2025-04-22] MEDS: SYMBICORT 160/4.5 MCG INHALER 2 PUFF INH ×2 (08:51→20:07)
[2025-04-22] MEDS: EFFEXOR XR 112.5 MG PO (09:19)
[2025-04-22] MEDS: LOPRESSOR 12.5 MG PO ×2 (09:19→20:23)
[2025-04-22] MEDS: COLACE 100 MG PO (09:20)
--- NOTE | 2025-04-22 12:39 | PN.CDI ---
CDI
- -
CDI:
Physician Documentation Request
Admit Date: 04/20/25 02:50
Dear Doctor Polo,
Patient admitted with UTI.
04/21 Hospitalist PN: 'Bilateral DVT. Bilateral peroneal vein nonocclusive DVT noted...Continue with IV heparin till tomorrow.'
Clarify which of the following accurately represents the acuity of the DVT. Possible options might include:
____ Acute
Chronic
____ Other
Use of terms such as suspected, likely, concern for, or probable (associated with a specific diagnosis that is being evaluated, monitored, or treated as if it exists) are acceptable and can be coded in the inpatient setting, when documented at the
time of discharge.
Thank you,
Andria Maier RN, BSN
CDI Specialist
Available via [place] text
Please use your independent medical judgment in providing your response.
--- NOTE | 2025-04-22 14:37 | CM ---
Chart reviewed and cost of Eliquis is $147 per month and Xarelto is $139 per month, patient has selected Eliquis, first month free coupon provided. Patient to return to home with [facility].
Plan; Home with VN.
--- NOTE | 2025-04-22 14:55 | W.PN.HOSP.TC ---
Today's Communication/Plan
-
Restart ceftriaxone
Obtain CT of the abdomen pelvis
Dulcolax suppository
Blood cultures
Continue with IV heparin
Assessment / Plan
Assessment / Plan
Generalized weakness with recent history of UTI and treated with Macrobid
Currently urine culture negative for infection.
She has sinus tachycardia and lower extremity bilateral DVT-unclear of the tachycardia as causing the weakness or a positive reaction to Macrobid. Patient has unexplained liver function tests and generalized feeling of weakness and fatigue.
Add beta-blockers for the heart rate. Treat DVT.
Follow LFTs.
Bilateral DVT
Bilateral peroneal vein nonocclusive DVT noted. No obvious evidence of PE on the chest CT but the right lower lobe visualization limited because of dextroscoliosis. Continue with IV heparin till tomorrow. Transition to oral DOAC's. Eliquis
expensive at $174 per month. Pt is ok with the cost. Switch to DOAC once CT A/P is resulted
Sinus tachycardia
Suspect reactive
Continue with our treatments. Added low-dose beta-pavithra. Most recent echo 2 months ago showed normal EF with no significant valvular abnormality
Abnormal LFTs-unclear etiology. Unclear of her reaction to Macrobid use. Advised to avoid in future. Ultrasound of abdomen shows prior cholecystectomy and no acute intra-abdominal process identified. Possible hemangioma noted. Patient aware
about the hemangioma from prior abdominal imaging. Improving -follow
Non specific abdo discomfort along with constipation -patient today feels unwell with some hot flashes/sweats. She noticed that after discontinuing antibiotics. She was feeling great last couple of days. Rule out any intra-abdominal pathology.
Obtain a CT of the abdomen pelvis. Restart ceftriaxone pending further data. Obtain blood cultures.
Recent UTI.
Patient urine culture is negative.
Hold further antibiotics and follow-up.
Hyponatremia-continue to follow
Constipation-CW bowel regimen, add dulcolax suppository
Hypothyroidism-continue Synthroid. Check TSH.
Full code
PT OT eval
Total time spent on today's encounter was 52 minutes which included time spent in counseling the patient/family regarding diagnosis and treatment plan as listed above, goals of care, and symptom management. Case was discussed with nursing staff,
specialists, and care coordinators/case management. All labs and imaging personally reviewed by me. Remainder the time spent in detailed review of previous records, lab data, imaging, and other medical provider documentation.
Anticipated Discharge: > 48 hours
Subjective/Interval History
-
Date of Service: April 22, 2025
Today she does not feel well unlike last 2 days where she was feeling great. She is not sure whether it was discontinued antibiotics.
She has these waves of hot flashes which she experiences when she has an infection. She still has nonspecific abdominal discomfort she is still constipated. When she is constipated she has some discomfort with urination.
Denies any chest pain or shortness of breath.
Objective Data
-
Labs:
Laboratory Results
04/22/25 04/22/25 04/22/25
00:36 08:10 14:51
WBC 8.7
Hgb 11.0 L
Hct 34.4 L
Plt Count 395
APTT 131.3 H 72.1 H Pending
Sodium 135
Potassium 3.7
Chloride 99
Carbon Dioxide 31 H
BUN 7
Creatinine 0.5 L
Glucose 92
Calcium 9.0
Total Bilirubin 0.3
AST 32
ALT 65 H
Alkaline Phosphatase 174 H
Vital Signs:
Vital Signs
Temp Pulse Resp BP Pulse Ox
98.3 F 92 16 125/62 94
04/22/25 11:00 04/22/25 11:00 04/22/25 11:00 04/22/25 11:00 04/22/25 11:00
I&O
04/21/25 04/22/25 04/23/25
06:59 06:59 06:59
Intake Total 1160 / 1160 720 / 720
Output Total 300 / 300
Balance 1160 / 1160 420 / 420
Physical Exam
-
General: No Apparent Distress
Respiratory: Clear to Auscultation and Non Labored Respirations; Negative Accessory Resp Muscle Use
Cardiac: Regular Rhythm and S1/S2
GI: Soft, Nondistended, Normal Bowel Sounds and Tender (some discomfort in epigastric /central mid abdo area but no rebound or guarding or rigidity)
Neuro: AO x 3
Psych: Calm; Negative Confused
Data Reviewed
-
Labs: Labs Reviewed by me
[2025-04-22 15:11] LABS: APTT 66.9 Sec (23.4-35.0)
--- NOTE | 2025-04-22 15:25 | VNURNOTE ---
PM-[facility] resumption referral accepted in [facility].
[2025-04-22] MEDS: TYLENOL 650 MG PO ×2 (15:48→21:58)
[2025-04-22] MEDS: ROCEPHIN 1000 MG IV (15:50)
[2025-04-22] MEDS: STERILE WATER FOR INJECTION 10 ML IV (15:51)
[2025-04-22] MEDS: OMNIPAQUE 50 ML PO (15:51)
[2025-04-22] MEDS: HEPARIN 25000 UNITS/250 ML IV (17:56)
[2025-04-22] MEDS: SINGULAIR 10 MG PO (20:21)
[2025-04-22] MEDS: NEURONTIN 400 MG PO (20:23)
[2025-04-22] MEDS: NORVASC 2.5 MG PO (20:23)
[2025-04-22] MEDS: LIPITOR 10 MG PO (20:23)
[2025-04-22] MEDS: COLACE PO (20:25)
[2025-04-22] MEDS: SENOKOT PO (20:26)
[2025-04-22] MEDS: TUMS CHEWABLE TABLET 200 MG PO (20:42)
[2025-04-22] MEDS: XANAX 0.5 MG PO (21:07)
[2025-04-22 22:32] LABS: APTT 87.2 Sec (23.4-35.0)
[2025-04-23] VITALS (8 sets, daily range): BP systolic 114–149; BP diastolic 60–76; PULSE 96–124
[2025-04-23] MEDS: SYNTHROID 75 MCG PO (04:11)
[2025-04-23] MEDS: TYLENOL 650 MG PO ×2 (04:13→21:35)
[2025-04-23 04:19] LABS: Hematocrit 31.0 % (37.0-47.0); Hemoglobin 10.0 g/dL (12.0-16.0); Mean Corp Hgb Conc. 32.3 g/dL (33.0-37.0); Mean Corpuscular Volume 79.3 fL (81.0-99.0); Platelet Count 389 10^3/uL (130-400); Red Cell Dist. Width 14.5 % (11.5-14.5)
[2025-04-23 04:28] LABS: APTT 110.2 Sec (23.4-35.0)
[2025-04-23 04:44] LABS: ALT (SGPT) 47 U/L (0-35); AST (SGOT) 27 U/L (14-36); Albumin 3.2 g/dl (3.5-5.0); Alkaline Phosphatase 150 U/L (38-126); Blood Urea Nitrogen 7 mg/dl (7-17); Calcium 9.1 mg/dl (8.4-10.2); Carbon Dioxide 30 mmol/L (22-30); Chloride 100 mmol/L (98-107); Estimated Creatinine Clearance 55 ml/min; Glucose 94 mg/dl (70-99); Potassium 3.3 mmol/L (3.5-5.1); Sodium 135 mmol/L (135-145); Total Protein 5.5 g/dl (6.3-8.2); eGFR > 60.00
[2025-04-23] MEDS: SYMBICORT 160/4.5 MCG INHALER 2 PUFF INH ×2 (08:21→20:02)
[2025-04-23] MEDS: COLACE PO (08:49)
[2025-04-23] MEDS: LOPRESSOR 12.5 MG PO ×2 (08:49→19:33)
[2025-04-23] MEDS: EFFEXOR XR 112.5 MG PO (08:50)
[2025-04-23] MEDS: XANAX 0.5 MG PO ×2 (08:53→21:19)
--- NOTE | 2025-04-23 12:21 | CON.GI ---
Addendum entered and electronically signed by Hedy Quijano Do, MD 04/23/25 14:32:
I saw and examined the patient.
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
Comment: Jeane is an 85yo W known to me for longstanding GERD with constipation with recent hip replacement February 2025 completed by post op femur fracture and multiple UTIs. She has been on 3 rounds of abx including keflex, amox and now macrobid.
She is admitted for weakness and nausea. GI consulted for elevated LFTs. At time of my interview she has no further nausea/vomiting and tolerating regular diet. She has mild constipation. Denies blood in stools. Vitals stable exam thin NAD
conversant NTTP. Labs reviewed anemia microcytic LFTs improving. CTAP with contrast s/p CYY mild intra and extrahepatic dilation. diverticulosis.
Impressions
- Elevated LFTs
Improving suspect related to abx and infections
- Mild biliary dilation
This can be seen given her advanced age and s/p CYY
Low suspicion for biliary infection given no leukocytosis, fever or further abd pain plus improvements in LFTs
- Non occlusive thrombus
- Hip replacement in 02/2025
- Constipation
- GERD
- anxiety
- Depression
- Hypothyroidism
Impression
- She is tolerating regular diet
- LFTs downtrending
- She declines MRI given claustrophobia. Given improving LFTs, no fever, leukocytosis or further abd pain low suspicion for biliary infection. Her advanced age and also s/p cholecystectomy state can cause mild benign biliary dilation. Recommend
repeat LFTs in 1wk. Slip provided. If not normalized then can arrange OP MRI
- C/w PPI
- Will need close OP FU for workup of microcytic anemia as well. However this finding only started post hip replacement.
At this juncture GI will sign off please call for ? All questions answered
Original Note:
Consultation
-
Date/Time Consultation Requested: 04/23/25 1145
Date/Time Consultation Performed: 04/23/25 4535
Requesting Provider: adolfo Cuellar MD
Performing Provider: DICK Dawn, Hedy Ellis MD
Reason for Consultation: increased LFT's
Medical History
Chief Complaint / HPI
History of Present Illness:
Pt is an 85yo with hx asthma, restrictive lung disease, GERD/HH, anxiety/depression, hypothyroidism, prior alfonso, prior spinal fusion with recent elective THR on 03/02. She wsas noted several day post -op with non displaced femur fracture. After
completed she has had several course of antibiotics for Ecoli + UTI 04/12 pt recall Cephalexin 5 days then Amoxicillin 5 days then Macrobid with nausea, weakness and intolerance leading to admission. On admission urine cx neg. Asked to see for
increased LFT's and abnormal imaging. She is also noted with + non occlusive thrombus within peroneal vein now on heparin gtt.
In review with patient she admits admits to chronic GERD on Omprazole daily prior to admission now on Pantoprazole. She did have some periods of nausea with inability to eat with macrobid but some improvement. She had mild abdominal pain but
denies any episodes of severe pain in past few weeks. She has also had constipation but had large stool with CT contrast yesterday. No blood or black in stools. Denies NSAID use.
Laboratory Tests
04/19/25 04/20/25 04/21/25
20:15 05:05 07:45
Total Bilirubin 0.5 0.4 0.3
AST 101 H 63 H 51 H
ALT 115 H 103 H 79 H
Alkaline Phosphatase 218 H 213 H 221 H
04/22/25 04/23/25
08:10 04:07
Total Bilirubin 0.3 0.2
AST 32 27
ALT
Alkaline Phosphatase 174 H 150 H
04/22/25 CT Abd/pel W Iv And Oral Contr
Prior cholecystectomy. Mild intrahepatic and extrahepatic biliary tract dilatation slightly more prominent in comparison to relative remote prior CT. Suggest MRI/MRCP complete evaluation.
Limited evaluation of intestinal tract due to several factors, with no intestinal obstruction or free air. Sigmoid diverticulosis markedly limited by beam hardening artifact from left hip arthroplasty.
Past Medical History
Past Medical History: Asthma, GERD, Hypothyroidism, Psychiatric (depression, anxiety) and Other (hiatal hernia, scoliosis, antoni thyroiditis, leg spasms, IBS, thrush, restrictive lung disease ,non displaced left femur fracture with non surgical
management)
Past Surgical History: Cholecystectomy, Gynecological (fibroids, ELI, lap for infertilitiy ), Orthopedic (spinal fusion, THR 03/02/25 ) and Other (thyroidectomy)
Social History
Tobacco: Non-Smoker
Alcohol: None
Drug: None
Personal:
Living: With Family
Employment: Retired
Family History
Family History: Other (grandfather possible colon CA)
Allergies / Home Medications
Allergy/AdvReac Type Severity Reaction Status Date / Time
albuterol Allergy 'very sick' Verified 04/19/25 19:54
ciprofloxacin Allergy swelling Verified 04/19/25 19:54
mouth
erythromycin base Allergy rapid Verified 04/19/25 19:54
heart rate
but
patient is
not aware
of allergy
mepivacaine HCl (From Allergy rapid Verified 04/19/25 19:54
Carbocaine) heart beat
but
patient is
unaware of
allergy
nitrofurantoin (From Allergy numbing & Verified 04/19/25 19:54
Macrobid) tingling
in lips &
mouth
sulfamethoxazole (From Allergy GI upset, Verified 04/19/25 19:54
Bactrim) nausea
trimethoprim (From Bactrim) Allergy GI upset, Verified 04/19/25 19:54
nausea
�Medication �Instructions �Recorded
levothyroxine 75 mcg tablet 75 mcg PO SUMOTUWETHFR@0600 Thyroid 06/16/09
cetirizine 10 mg tablet (Zyrtec) 10 mg PO DAILY PRN Allergies 02/16/25
cholecalciferol (vitamin D3) 50 50 mcg PO DAILY Supplement 02/16/25
mcg (2,000 unit) capsule (Vitamin
D3)
denosumab 60 mg/mL subcutaneous 60 mg SC [id number] OSTEOPOROSIS 02/16/25
syringe (Prolia)
fluticasone furoate 100 1 inh inhalation R DAILY 02/16/25
mcg-vilanterol 25 mcg/dose Lung/Breathing Issues
inhalation powder (Breo Ellipta)
fluticasone propionate 50 1 spray intranasal DAILYPRN PRN 02/16/25
mcg/actuation nasal Allergies
spray,suspension
gabapentin 400 mg capsule 400 mg PO HS Neurological Condition 02/16/25
levalbuterol tartrate 45 2 inh inhalation R Q6HPRN PRN 02/16/25
mcg/actuation aerosol inhaler wheeze
levothyroxine 75 mcg tablet 150 mcg PO SA Thyroid 02/16/25
montelukast 10 mg tablet 10 mg PO HS Allergies 02/16/25
(Singulair)
omeprazole 20 mg tablet,delayed 20 mg PO DAILY Gastrointestinal 02/16/25
release Issue
peppermint oil 2 cap PO DAILY Supplement 02/16/25
simvastatin 10 mg tablet 10 mg PO HS High Cholesterol 02/16/25
amlodipine 2.5 mg tablet 2.5 mg PO HS Blood Pressure #1 tab 03/03/25
venlafaxine 37.5 mg 112.5 mg PO DAILY Mental 03/09/25
capsule,extended release 24 hr Health/Anxiety
acetaminophen 325 mg tablet 325 mg PO Q6HPRN PRN mild pain 04/20/25
(Tylenol)
alprazolam 1 mg tablet (Xanax) 0.25 mg PO HS Mental Health/Anxiety 04/20/25
dimenhydrinate 25 mg chewable 25 mg PO HS Motion sickness 04/20/25
tablet (Dramamine)
docusate sodium 100 mg capsule 100 mg PO HS Constipation 04/20/25
(Colace)
Review of Systems
-
History Source: Patient
Constitutional: Reports Other (hot flashes )
EENT: Reports No Symptoms
Respiratory: Reports No Symptoms
Cardiac: Reports Palpitations
Abdomen/GI: Reports Abdominal Pain, Nausea (with abx ) and Constipated
: Reports Other (prior foul smelling urine now improved )
Musculoskeletal: Reports Joint Pain (with recent hip sx and femur fx)
Skin: Reports No Symptoms
Neurological: Reports Weakness
Endocrine: Reports No Symptoms
Hematologic/Lymphatic: Reports No Symptoms
Vital Signs
Temp Pulse Resp BP Pulse Ox
98.7 F 85 18 124/62 96
04/23/25 11:30 04/23/25 11:30 04/23/25 11:30 04/23/25 11:30 04/23/25 11:30
Physical Exam
Exam
General: Well Developed, Well Nourished and No Apparent Distress
HEENT: Normocephalic and Anicteric
Respiratory: Clear
Cardiac: Regular Rhythm
GI: Soft, Non Tender and Non Distended
Musculoskeletal: No Clubbing and No Cyanosis
Skin: Warm and Dry
Neuro: Awake, Alert and AO x 3
Psych: Calm
Results
WBC 7.5 10^3/uL (4.8-10.8) 04/23/25 04:07
Hgb 10.0 g/dL (12.0-16.0) L 04/23/25 04:07
Hct 31.0 % (37.0-47.0) L 04/23/25 04:07
MCV 79.3 fL (81.0-99.0) L 04/23/25 04:07
Plt Count 389 10^3/uL (130-400) 04/23/25 04:07
Absolute Neuts (auto) 7.3 10^3/uL (1.4-6.5) H 04/19/25 20:15
APTT 110.2 Sec (23.4-35.0) H 04/23/25 04:07
Sodium 135 mmol/L (135-145) 04/23/25 04:07
Potassium 3.3 mmol/L (3.5-5.1) L 04/23/25 04:07
Chloride 100 mmol/L (98-107) 04/23/25 04:07
Carbon Dioxide 30 mmol/L (22-30) 04/23/25 04:07
BUN 7 mg/dl (7-17) 04/23/25 04:07
Creatinine 0.4 mg/dL (0.6-1.0) L 04/23/25 04:07
Calcium 9.1 mg/dl (8.4-10.2) 04/23/25 04:07
Total Bilirubin 0.2 mg/dl (0.2-1.3) 04/23/25 04:07
AST 27 U/L (14-36) 04/23/25 04:07
ALT 47 U/L (0-35) H 04/23/25 04:07
Alkaline Phosphatase 150 U/L (38-126) H 04/23/25 04:07
Diagnostic Image Results:
04/22/25 CT Abd/pel W Iv And Oral Contr
Prior cholecystectomy. Mild intrahepatic and extrahepatic biliary tract dilatation slightly more prominent in comparison to relative remote prior CT. Suggest MRI/MRCP complete evaluation.
Limited evaluation of intestinal tract due to several factors, with no intestinal obstruction or free air. Sigmoid diverticulosis markedly limited by beam hardening artifact from left hip arthroplasty.
Prior GI Procedures:
EGD: 2020- Do - Tortuous esophagus.
- 2cm hiatal hernia.
- White nummular lesions in esophageal mucosa. Cells
for cytology obtained.
- Erythematous mucosa in the antrum. Biopsied.
- A few gastric polyps. Resected and retrieved.
- Normal examined duodenum. Biopsied.
bx chronic gastritis, neg H pylori/metaplasia
Colonoscopy: 2009 jeff Non-thrombosed external hemorrhoids.
- Diverticulosis sigmoid colon and descending colon.
- Internal hemorrhoids.
Assessment / Plan
-
Pt is an 85yo with hx asthma, restrictive lung disease, GERD/HH, anxiety/depression, hypothyroidism, prior alfonso, prior spinal fusion with recent elective THR on 03/02. She was noted several day post -op with non displaced femur fracture. After
completed she has had several course of antibiotics for Ecoli + UTI 04/12 pt recall Cephalexin 5 days then Amoxicillin 5 days then Macrobid with nausea, weakness and intolerance leading to admission. On admission urine cx neg. Asked to see for
increased LFT's and abnormal imaging. She is also noted with + non occlusive thrombus within peroneal vein now on heparin gtt.
In review with patient she admits admits to chronic GERD on Omprazole daily prior to admission now on Pantoprazole. She did have some periods of nausea with inability to eat with macrobid but some improvement. She had mild abdominal pain but
denies any episodes of severe pain in past few weeks. She has also had constipation but had large stool with CT contrast yesterday. No blood or black in stools. Denies NSAID use.
04/22/25 CT Abd/pel W Iv And Oral Contr
Prior cholecystectomy. Mild intrahepatic and extrahepatic biliary tract dilatation slightly more prominent in comparison to relative remote prior CT. Suggest MRI/MRCP complete evaluation.
Limited evaluation of intestinal tract due to several factors, with no intestinal obstruction or free air. Sigmoid diverticulosis markedly limited by beam hardening artifact from left hip arthroplasty
Laboratory Tests
04/19/25 04/20/25 04/21/25
20:15 05:05 07:45
Total Bilirubin 0.5 0.4 0.3
AST 101 H 63 H 51 H
ALT 115 H 103 H 79 H
Alkaline Phosphatase 218 H 213 H 221 H
04/22/25 04/23/25
08:10 04:07
Total Bilirubin 0.3 0.2
AST 32 27
ALT
Alkaline Phosphatase 174 H 150 H
- increased LFT's- trending down
-CT with mild intrahepatic and extra hepatic biliary dilation more prominent with comparison
-.recent Ecoli UTI with multiple antibiotic course
-recent hip replacement with post op femur fracture
-mild anemia
-hypokalemia
other med problems:
asthma, restrictive lung disease, GERD/HH, anxiety/depression, hypothyroidism, prior alfonso, prior spinal fusion
PLAN:
etiology of LFt elevation related to multiple recent antibiotic course and DILI vs other-- no period of severe pain to suggest CBD stone
CT with mild intrahepatic and extra hepatic biliary dilation more prominent with comparison
discussed MRI with patient -- she is claustrophobic and has difficulty with resp instruction with study
she wishes to review with Dr. Ellis prior to proceeding as LFT's are trending downward
can consider US but review MRI with more detailed study
cont to trend labs
repeat Urine cx neg
currently remain ceftriaxone without fever or leukocytosis
pt also on heparin with DVT-- monitor hbg
cont PPI with hx GERD and HH
repeat K per hospitalist
per review of liver tox Macrobid is well known to cause liver injury is typically just transaminases and can persist for some time
-
-
Thank you for consultation and allowing me to participate in the patient's care. Please call the consumer science teacher GI physician during the after hours with any questions or concerns.
--- NOTE | 2025-04-23 12:23 | W.PN.HOSP.TC ---
Addendum entered and electronically signed by Ron Cuellar MD 04/26/25 15:03:
BMI 19.2 suggestive of underweight
Bilateral DVTs unknown chronicity
Original Note:
Today's Communication/Plan
-
Continue with empirical ceftriaxone
MRI of the abdomen/MRCP
Consult GI
Assessment / Plan
Assessment / Plan
Generalized weakness with recent history of UTI and treated with Macrobid
Currently urine culture negative for infection.
She has sinus tachycardia and lower extremity bilateral DVT-unclear of the tachycardia as causing the weakness or a positive reaction to Macrobid. Patient has unexplained liver function tests and generalized feeling of weakness and fatigue.
Added beta-blockers for the heart rate-improved. Treat DVT.
Follow LFTs.
Bilateral DVT
Bilateral peroneal vein nonocclusive DVT noted. No obvious evidence of PE on the chest CT but the right lower lobe visualization limited because of dextroscoliosis. Continue with IV heparin till tomorrow. Transition to oral DOAC's. Eliquis
expensive at $174 per month. Pt is ok with the cost. Switch to DOAC once MRI/MRCP is completed
Sinus tachycardia
Suspect reactive
Continue with our treatments. Added low-dose beta-pavithra. Most recent echo 2 months ago showed normal EF with no significant valvular abnormality
Abnormal LFTs-unclear etiology. Unclear of her reaction to Macrobid use. Advised to avoid in future. Ultrasound of abdomen shows prior cholecystectomy and no acute intra-abdominal process identified. Possible hemangioma noted. Patient aware
about the hemangioma from prior abdominal imaging. Improving -follow
Non specific abdo discomfort along with constipation -patient today feels unwell with some hot flashes/sweats. She noticed that after discontinuing antibiotics. She was feeling great last couple of days. Rule out any intra-abdominal pathology.
Restart ceftriaxone pending further data. Obtain blood cultures-pending.
Patient feeling improved again with resumption of ceftriaxone
CT of the abdomen pelvis shows mild intrahepatic and extrahepatic biliary ductal dilatation slightly more prominent in comparison with prior CT. With abnormal LFTs and nonspecific symptoms with improvement on ceftriaxone will obtain MRI/MRCP of the
abdomen and consult GI to rule out biliary infection.
Recent UTI.
Patient urine culture is negative.
Hold further antibiotics and follow-up.
Hyponatremia-continue to follow
Constipation-CW bowel regimen-patient had bowel movement 04/22
Hypothyroidism-continue Synthroid. Check TSH.
Full code
PT OT eval
Anticipated Discharge: > 48 hours
Subjective/Interval History
-
Date of Service: April 23, 2025
Today she feels better again. No more hot flash sensations. Denies any fever or chills.
She had a bowel movement after CT contrast was given. She still occasionally has epigastric area discomfort which she attributes to reflux. She is normally on omeprazole at home.
Denies shortness of breath or chest pain
No nausea. Tolerating diet
Objective Data
-
Labs:
Laboratory Results
04/23/25
04:07
WBC 7.5
Hgb 10.0 L
Hct 31.0 L
Plt Count 389
APTT 110.2 H
Sodium 135
Potassium 3.3 L
Chloride 100
Carbon Dioxide 30
BUN 7
Creatinine 0.4 L
Glucose 94
Calcium 9.1
Total Bilirubin 0.2
AST 27
ALT 47 H
Alkaline Phosphatase 150 H
Vital Signs:
Vital Signs
Temp Pulse Resp BP Pulse Ox
98.7 F 85 18 124/62 96
04/23/25 11:30 04/23/25 11:30 04/23/25 11:30 04/23/25 11:30 04/23/25 11:30
I&O
04/22/25 04/23/25 04/24/25
06:59 06:59 06:59
Intake Total 720 / 720 852 / 852 240 / 240
Output Total 300 / 300
Balance 420 / 420 852 / 852 240 / 240
Physical Exam
-
General: Comfortable
HEENT: Moist Mucous Membranes
Respiratory: Clear to Auscultation and Non Labored Respirations; Negative Accessory Resp Muscle Use
Cardiac: Regular Rhythm and S1/S2
GI: Soft and Nontender
Neuro: AO x 3
Psych: Calm; Negative Confused
Data Reviewed
-
Labs: Labs Reviewed by me
--- NOTE | 2025-04-23 15:37 | CM ---
Chart reviewed and will follow with patient progress, plan was to home with [facility].
Plan; Home with [facility] when stable.
[2025-04-23] MEDS: ROCEPHIN IV (15:53)
[2025-04-23] MEDS: STERILE WATER FOR INJECTION IV (15:53)
[2025-04-23] MEDS: PROTONIX 40 MG PO (16:13)
[2025-04-23] MEDS: ELIQUIS 10 MG PO (19:33)
[2025-04-23] MEDS: COLACE 100 MG PO (19:34)
[2025-04-23] MEDS: NORVASC 2.5 MG PO (21:09)
[2025-04-23] MEDS: LIPITOR 10 MG PO (21:09)
[2025-04-23] MEDS: SINGULAIR 10 MG PO (21:10)
[2025-04-23] MEDS: NEURONTIN 400 MG PO (21:10)
[2025-04-23] MEDS: SENOKOT 17.2 MG PO (21:17)
[2025-04-24 03:25] VITALS: BP 127/63
[2025-04-24] MEDS: SYNTHROID 75 MCG PO (05:51)
[2025-04-24 07:36] LABS: Hematocrit 31.0 % (37.0-47.0); Hemoglobin 9.9 g/dL (12.0-16.0); Mean Corp Hgb Conc. 31.9 g/dL (33.0-37.0); Mean Corpuscular Volume 80.5 fL (81.0-99.0); Platelet Count 432 10^3/uL (130-400); Red Cell Dist. Width 14.6 % (11.5-14.5)
[2025-04-24 07:47] LABS: APTT 31.6 Sec (23.4-35.0)
[2025-04-24] MEDS: SYMBICORT 160/4.5 MCG INHALER 2 PUFF INH (07:51)
[2025-04-24 08:00] VITALS: BP 148/69
[2025-04-24 08:02] LABS: ALT (SGPT) 80 U/L (0-35); AST (SGOT) 93 U/L (14-36); Albumin 3.3 g/dl (3.5-5.0); Alkaline Phosphatase 137 U/L (38-126); Blood Urea Nitrogen 8 mg/dl (7-17); Calcium 8.7 mg/dl (8.4-10.2); Carbon Dioxide 32 mmol/L (22-30); Chloride 101 mmol/L (98-107); Estimated Creatinine Clearance 55 ml/min; Glucose 91 mg/dl (70-99); Potassium 3.7 mmol/L (3.5-5.1); Sodium 137 mmol/L (135-145); Total Protein 5.7 g/dl (6.3-8.2); eGFR > 60.00
[2025-04-24] MEDS: ELIQUIS 10 MG PO (09:42)
[2025-04-24] MEDS: LOPRESSOR 12.5 MG PO (09:42)
[2025-04-24] MEDS: EFFEXOR XR 112.5 MG PO (09:43)
[2025-04-24] MEDS: COLACE 100 MG PO (09:43)
[2025-04-24] MEDS: PROTONIX 40 MG PO (09:44)
[2025-04-24] MEDS: XANAX 0.5 MG PO (10:32)
--- NOTE | 2025-04-24 11:42 | CM ---
Home with [facility] when stable.
Plan; Home with [facility]
[2025-04-24 12:00] VITALS: BP 129/68
--- NOTE | 2025-04-24 14:59 | PN.CDI ---
CDI
- -
CDI:
Physician Documentation Request
Admit Date: 04/20/25 02:50
Dear Doctor Polo,
Patient admitted with weakness.
Please review the following and provide your response in the progress notes.
Clinical Indicators:
Height: 5' 3'
Weight: 108 lbs
BMI: 19.2
If possible, please provide an associated diagnosis related to the abnormal BMI, such as:
Underweight
Cachectic
BMI is not significant
Other
BMI < or = to 19.9
Underweight
Weight Loss
Cachectic
Anorexia
Use of terms such as suspected, likely, concern for, or probable (associated with a specific diagnosis that is being evaluated, monitored, or treated as if it exists) are acceptable and can be coded in the inpatient setting, when documented at the
time of discharge.
Thank you,
Andria Maier RN, BSN
CDI Specialist
Available via [place] text
Please use your independent medical judgment in providing your response.
--- NOTE | 2025-04-24 15:10 | W.DCSUMMARY ---
Discharge Summary
Discharge Data
Date of Admission: 04/20/25
Date of Discharge: 04/24/25
-
Pending Results: No
Hospital Course
Primary diagnosis:
Generalized weakness
Abnormal liver function test
Mildly dilated intra and extrahepatic biliary ductal dilatation
Sinus tachycardia
Bilateral peroneal veins DVT
Secondary diagnosis:
Hypothyroidism
Primary hypertension history of Eve's thyroiditis status post partial thyroidectomy
Hyperlipidemia
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
History of restrictive lung disease
Hospital course:
Patient came to the hospital because of weakness. She was recently troubled with UTIs and was treated with antibiotics in the last 1 was Macrobid. She had generalized weakness. No fevers or leukocytosis. There was few WBCs in the urine but the
urine culture showed no growth. Patient unexplained transaminitis. She is s/p remote cholecystectomy. Unclear if her symptomatology was secondary to recent UTI and Macrobid use. Macrobid can cause elevation in LFTs. She also did not feel well
last time she was on Macrobid. Her LFTs were spontaneously improving. Ultrasound of the abdomen did not show any acute pathology. She had a CT of the abdomen pelvis which showed mild intra and extrahepatic ductal dilatation but more prominent
than prior imaging but GI is not impressive about any biliary pathology currently with improving LFTs. Still suspect may be Macrobid related LFT abnormalities. She was advised to repeat LFTs in 1 week and follow-up with GI.
She was complaining of generalized weakness and intermittent palpitations. She was in sinus tachycardia. She recently was in and out of hospital and rehab so she was evaluated for thromboembolic disease. She done positive for bilateral peroneal
DVT but no PE. She was initiated on Eliquis and I will treat at least for 3 months. She apparently has chronic tachycardia. TSH was okay. Echo 2 months ago showed normal EF. She was initiated on low-dose beta-pavithra with improvement. Advised
to follow-up with PCP.
Today she was feeling better and in fact asking to go home since yesterday. She is off of ceftriaxone without any worsening of symptoms. She denied any nausea or vomiting. Tolerating diet. Afebrile, heart rate 92 blood pressure 129/68. White
count was 5.3. Creatinine was 0. 5. AST showed slight bump up to 93 and ALT was 80 and alkaline phos was 137. I again advised to get repeat CMP in a week.
She was felt medically stable for discharge home today.
Consultants on board:
GI-Hedy Churchill Do
Discharge Plan
-
Patient Disposition: Home (Routine Discharge)
Discharge Diagnosis/Procedures: Abnormal LFTs, BL peroneal vein DVT with no PE, sinus tachycardia
Diet: Regular
Activity: As tolerated
Driving Restrictions: As prior to admission
Blood Work: CMP blood work in one week -arrange through your PCP
Referrals:
Hedy Ellis MD [Active, Gastroenterology]
Referral Note: Do labs in 1wk slip given to you by Dr Ellis
FU with Dr Ellis in GI office in 4-8 wks
Rosa Mendez PA-C [Family Provider, Family Practice] - in less than 1 week
Additional Discharge Medication Instructions: Take Eliquis 10mg( 2 tabs of 5mg) twice a day for 6 more days and then switch to 5mg(1 tab) twice a day for rest of the treatment period
Prescriptions:
New
Eliquis 5 mg tablet
10 mg PO BID Qty: 84 0RF
Rx Instructions:
Take 10mg twice a day for 6 more days and then take 5mg twice a day for rest of the treatment
polyethylene glycol 3350 17 gram Powder In Packet
17 g PO DAILY Qty: 30 0RF
metoprolol tartrate 25 mg Tablet
12.5 mg PO BID Qty: 60 0RF
sennosides [Rosalva-dixon] 8.6 mg Tablet
17.2 mg PO HS PRN (Reason: Constipation) Qty: 30 0RF
Continued
levothyroxine 75 MCG tablet
75 mcg PO SUMOTUWETHFR@0600
montelukast [Singulair] 10 mg Tablet
10 mg PO HS
cetirizine [Zyrtec] 10 mg Tablet
10 mg PO DAILY PRN (Reason: Allergies)
gabapentin 400 mg capsule
400 mg PO HS
simvastatin 10 mg tablet
10 mg PO HS
levalbuterol tartrate 45 mcg/actuation Hfa Aerosol Inhaler
2 inh INHALATION R Q6HPRN PRN (Reason: wheeze)
omeprazole 20 mg Tablet,Delayed Release (Dr/Ec)
20 mg PO DAILY
Prolia 60 mg/mL Syringe
60 mg SC [id number]
fluticasone furoate-vilanterol [Breo Ellipta] 100-25 mcg/dose blister with device
1 inh INHALATION R DAILY
levothyroxine 75 mcg tablet
150 mcg PO SA
fluticasone propionate 50 mcg/actuation [place],Suspension
1 spray INTRANASAL DAILYPRN PRN (Reason: Allergies)
cholecalciferol (vitamin D3) [Vitamin D3] 50 mcg (2,000 unit) Capsule
50 mcg PO DAILY
peppermint oil Capsule,Delayed Release(Dr/Ec)
2 cap PO DAILY
amlodipine 2.5 mg tablet
2.5 mg PO HS Qty: 1 0RF
venlafaxine 37.5 mg capsule,extended release 24hr
112.5 mg PO DAILY
acetaminophen [Tylenol] 325 mg Tablet
325 mg PO Q6HPRN PRN (Reason: mild pain)
alprazolam [Xanax] 1 mg Tablet
0.25 mg PO HS
docusate sodium [Colace] 100 mg Capsule
100 mg PO HS
Dramamine 25 mg Tablet,Chewable
25 mg PO HS
Discharge Date and Time
Print Language: ANDORRAN
[2025-04-24 15:34] VITALS: BP 139/70
[2025-04-24 16:00] VITALS: BP 140/70
== END 2025-04-24 16:47 | disposition home health service (06) | DRG 300 ==
LOC: 4 WEST ACU 02:50
PROVIDERS: ADMITTING PHYSICIAN Internal Medicine; ATTENDING PHYSICIAN Internal Medicine; CONSULT PHYSICIAN Internal Medicine Gastroenterology; EMERGENCY PHYSICIAN Student in an Organized Health Care Education/Training Program; FAMILY PHYSICIAN Physician Assistant Medical
DX: I82.453 Acute embolism and thrombosis of peroneal vein, bilateral (principal); E87.1 Hypo-osmolality and hyponatremia; Z68.1 Body mass index [BMI] 19.9 or less, adult; R00.0 Tachycardia, unspecified; R79.89 Other specified abnormal findings of blood chemistry; E87.6 Hypokalemia; D50.9 Iron deficiency anemia, unspecified; F41.9 Anxiety disorder, unspecified; R74.01 Elevation of levels of liver transaminase levels; E86.0 Dehydration; I10 Essential (primary) hypertension; R63.6 Underweight; J44.89 Other specified chronic obstructive pulmonary disease; F32.A Depression, unspecified; K21.9 Gastro-esophageal reflux disease without esophagitis; E78.5 Hyperlipidemia, unspecified; F40.240 Claustrophobia; K58.1 Irritable bowel syndrome with constipation; M19.90 Unspecified osteoarthritis, unspecified site; Z11.52 Encounter for screening for COVID-19; Z79.51 Long term (current) use of inhaled steroids; Z79.899 Other long term (current) drug therapy; Z87.440 Personal history of urinary (tract) infections; Z79.890 Hormone replacement therapy; Z87.891 Personal history of nicotine dependence
CPT/HCPCS: 71275; 74177; 76700; 80048; 80053; 80076; 81003; 81015; 83605; 83935; 84300; 84443; 85025; 85027; 85379; 85730; 87040; 87086; 87502; 87811; 93005; 93970; 94640; 97116; 97162; 97167; 97530; 97535; 99285; Q9967

== ENCOUNTER 2025-07-03 08:35 | Outpatient (RCR) | payer OTHER, SELFPAY | END 2025-07-03 23:59 | disposition home or self-care (01) | LOC: RPT 08:35 | PROVIDERS: ATTENDING PHYSICIAN Specialist; FAMILY PHYSICIAN Family Medicine | DX: Z47.1 Aftercare following joint replacement surgery (principal); M97.02XD Periprosthetic fracture around internal prosthetic left hip joint, subsequent encounter; Z73.6 Limitation of activities due to disability; R26.89 Other abnormalities of gait and mobility; Z96.642 Presence of left artificial hip joint | CPT/HCPCS: 97110; 97112; 97162 ==

== ENCOUNTER → 2025-07-10 12:12 | Outpatient (REF) | payer OTHER, SELFPAY | LOC: RAD 12:12 | PROVIDERS: ATTENDING PHYSICIAN Internal Medicine; FAMILY PHYSICIAN Physician Assistant Medical | DX: M84.750 Atypical femoral fracture, unspecified (principal) | CPT/HCPCS: 73552 ==

== ENCOUNTER 2025-07-29 07:22 | Outpatient (RCR) | payer OTHER, SELFPAY | END 2025-07-31 06:25 | disposition home or self-care (01) | LOC: RPT 07:22 | PROVIDERS: ATTENDING PHYSICIAN Specialist; FAMILY PHYSICIAN Family Medicine | DX: Z47.1 Aftercare following joint replacement surgery (principal); M97.02XD Periprosthetic fracture around internal prosthetic left hip joint, subsequent encounter; Z73.6 Limitation of activities due to disability; R26.89 Other abnormalities of gait and mobility; Z96.642 Presence of left artificial hip joint | CPT/HCPCS: 97110; 97112 ==